=== PATIENT | male | born 1975 | race Caucasian/White ===

== ENCOUNTER 2017-08-08 10:17 | Inpatient (IN) | payer BC ==
[2017-08-08 11:18] LABS: #Eosinphils 0.2 thou/uL (0.0-0.7); #Monocytes 1.5 thou/uL (0.11-0.59); #Neutrophils 12.6 thou/uL (1.40-6.50); %Basophils 0.1 % (0.0-1.0); %Eosinophils 1.3 % (0.0-10.0); %Lymphocytes 6.6 % (21.0-51.0); %Monocytes 9.9 % (0.0-10.0); Hematocrit 35.5 % (42.0-52.0); Mean Platelet Volume 7.4 fL (7.4-10.4); Red Blood Cell (RBC) Count 3.76 mill/uL (4.70-6.10); White Blood Cell (WBC) Count 15.3 thou/uL (4.8-10.8)
[2017-08-08 11:33] LABS: Lactic Acid - Sepsis 1.1 mmol/L (0.5-2.2)
[2017-08-08 11:45] LABS: ALT (SGPT) 9 U/L (8-55); AST (SGOT) 9 U/L (5-34); Alkaline Phosphatase 112 U/L (40-150); Anion Gap 15 mmol/L (10-20); BUN (Urea Nitrogen) 50 mg/dL (8.9-20.6); Bilirubin, Total 0.4 mg/dL (0.2-1.2); CK (CPK) 24 U/L (30-200); Calc. Creatinine Clearance 0 mL/min (70-130); Carbon Dioxide 12 mmol/L (22-29); Chloride 112 mmol/L (98-107); Estimated GFR-MDRD 20; Globulin 3.2 g/dL (2.4-3.5); Lipase 33 U/L (8-78); Protein, Total 6.9 g/dL (6.0-8.3)
[2017-08-08 13:29] LABS: Magnesium 1.1 mg/dL (1.6-2.6); Phosphorus 5.2 mg/dL (2.3-4.7)
[2017-08-08 13:31] LABS: Bilirubin Negative (Negative); Blood, Urine Negative (Negative); Glucose, Urine (Dipstick) Negative (Negative); Ketone, Urine Negative (Negative); Nitrite Negative (Negative); Protein, Urine (Dipstick) 30 mg/dL (Neg-Trace); Urobilinogen 0.2 mg/dL (0.2-1.0)
[2017-08-08 13:33] LABS: Bacteria/HPF None Seen HPF (None Seen); Squamous Epithelial 0-3 HPF (0-3); WBC/HPF 0-3 HPF (0-3)
[2017-08-08 13:41] LABS: Hyaline Casts/LPF 0-3 HYALINE CAST LPF (0-3 Hyaline); RBC/HPF 0-3 HPF (0-3)
[2017-08-08] MEDS ORDERED: Ondansetron ODT 4 MG TAB SL PRN (14:50)
[2017-08-08] MEDS ORDERED: Sodium Chloride 0.9% 1,000 ML IV SCH (14:50)
[2017-08-08] MEDS ORDERED: Ondansetron HCl/PF 4 MG/2 ML Vial IVP PRN ×2 (14:50→17:54)
[2017-08-08] MEDS ORDERED: FLU VACC QS2017-18 36 mo. & older 0.5 ML SYRINGE IM ONE (15:30)
[2017-08-08] MEDS ORDERED: Magnesium 2 GM/NS 0.9% 100 ML 2 GM in Premix Bag 1 BAG IVPB SCH (17:15)
[2017-08-08] MEDS ORDERED: Ondansetron ODT 4 MG TAB PO PRN (17:54)
[2017-08-08] MEDS: Sodium Chloride 0.9% 1,000 ML IV SCH (18:06)
[2017-08-08] MEDS ORDERED: traMADol HCl 50 MG TAB PO PRN (20:33)
[2017-08-08] MEDS ORDERED: Loperamide HCl 2 MG CAP PO PRN (22:29)
--- NOTE | 2017-08-08 23:31 | HP ---
DATE OF ADMISSION: 08/08/2017 PRIMARY CARE PHYSICIAN: Zachery Garibay D.O. PRIMARY GLUER MACHINE OPERATOR: Eh Espinoza M.D. CHIEF COMPLAINT: Diarrhea. HISTORY OF PRESENT ILLNESS: The patient is a 41-year-old male with IgA nephropathy, status post nicole al transplant and chronic kidney disease stage 3, presented to the emergency room with above complai nts. Over the last one week, the patient has on and off diarrhea. He has more than 10 episodes on the da alfonso basis. The stool is watery with some formed contents. He also has generalized abdominal crampi ng and bloating. No nausea or vomiting reported. He denies any recent travel. No other family mem bers with similar illness. No fevers or chills reported. No jaundice. No recent changes in his me dications. He denies any lightheadedness, dizziness, however, feels generally weak. In the emergency room, his initial vital signs showed temperature 97.7, respirations 16, pulse of 93 , blood pressure of 101/60 with O2 saturation of 100% on room air. His workup was consistent with c reatinine of 3.41 with BUN 50. Please note that the patient recently had a gout flare and was start ed on indomethacin after Nephrology approval. PAST MEDICAL HISTORY: 1. IgA nephropathy, status post renal transplant. 2. Chronic kidney disease stage 3. 3. History of end-stage renal disease on hemodialysis in the past. 4. Hypertension. PAST SURGICAL HISTORY: 1. Renal transplant in 2003. 2. Right arm fistula. ALLERGIES: No known drug allergies. CURRENT MEDICATIONS: The patient is currently on captopril 50 mg t.i.d., diltiazem extended release 360 mg q.p.m., indomethacin 50 mg daily, tramadol as needed, prednisone 5 mg daily, tacrolimus 0.5 mg twice a day, mycophenolate 540 mg b.i.d. SOCIAL HISTORY: The patient currently lives at home. No current use of smoking, alcohol, or drug u se. FAMILY HISTORY: Negative for heart disease or renal failure. REVIEW OF SYSTEMS: The following complete review of systems was negative, unless otherwise mentione d in the HPI or below: Constitutional: Weight loss or gain, ability to conduct usual activities. Skin: Rash, itching. Eyes: Double vision, pain. ENT/Mouth: Nose bleeding, neck stiffness, pain, tenderness. Cardiovascular: Palpitations, dyspnea on exertion, orthopnea. Respiratory: Shortness of breath, wheezing, cough, hemoptysis, fever, or night sweats. Gastrointestinal: Poor appetite, abdominal pain, heartburn, nausea, vomiting, constipation, or diar ekaterina. Genitourinary: Urgency, frequency, dysuria, nocturia. Musculoskeletal: Pain, swelling. Neurologic/Psychiatric: Anxiety, depression. Allergy/Immunologic: Skin rash, bleeding tendency. PHYSICAL EXAMINATION: VITAL SIGNS: As discussed above. GENERAL: A 41-year-old male in no apparent distress. Feels generally weak. HEENT: Head, atraumatic, normocephalic. Sclerae are anicteric. Moist mucous membranes. No oral l esion. NECK: Supple, no JVD appreciated. No carotid bruit. LUNGS: Clear to auscultation bilaterally. HEART: S1, S2 present. Regular rate and rhythm. No rubs or gallops appreciated. ABDOMEN: Soft, mild generalized tenderness, without any rebound or guarding. EXTREMITIES: No edema or calf tenderness. Right forearm dialysis fistula noted. NEUROLOGIC: Grossly nonfocal, moves all 4 extremities. PSYCHIATRY: Alert, awake, oriented x3. SKIN: Warm and dry. LYMPH NODES: No palpable lymph nodes in the neck. PERIPHERAL VASCULAR: Radial pulses palpable bilaterally. MUSCULOSKELETAL: No joint swelling or tenderness. LABORATORY FINDINGS: 1. Creatinine 3.41 with BUN 50. 2. Magnesium 1.1. 3. CBC showed WBC 15.3 with hemoglobin 11.4. 4. CRP was 0.85. 5. Urinalysis was negative for wbc's or bacteria. Ketones were negative. 6. Stool workup was negative for Giardia or cryptosporidium. Stool lactoferrin was positive. Camp ylobacter and Shiga toxin was negative. C. diff was negative. 7. EKG by my review showed normal sinus rhythm without significant ST-T wave changes. IMPRESSION: 1. Acute kidney injury on chronic kidney disease stage 3, probably caused by hypovolemia/dehydratio n. 2. Hypomagnesemia. 3. Metabolic acidosis, probably secondary to renal failure. 4. Recent gout flare on indomethacin. This could be contributing to his renal failure. 5. Secondary hyperparathyroidism. 6. Elevated inflammatory markers. 7. Hyponatremia. 8. Leukocytosis, questionable systemic inflammatory response syndrome. 9. Anemia, probably secondary to renal disease. 10. History of IgA nephropathy. 11. Hypertension. 12. History of renal transplant in 2003, currently on immunosuppressant. PLAN: 1. The patient will be monitored on the medical floor. We will continue IV fluids at 120 mL per ho ur. We will replace magnesium. Resume other home medications. I discussed the case with Dr. Marie Espinoza. He recommended not to check any drug level at this time. Indomethacin will be discontin ued. Stool workup was essentially negative except for lactoferrin positive. We will consult Infect ious Disease due to history of immunosuppression. 2. Plan of care was discussed with the patient. He stated understanding. The patient will require at least 2-3 days for stabilization.
[2017-08-09] MEDS: Sodium Chloride 0.9% 1,000 ML IV SCH ×3 (00:32→17:05)
[2017-08-09 05:49] LABS: Anion Gap 11 mmol/L (10-20); BUN (Urea Nitrogen) 42 mg/dL (8.9-20.6); BUN/Creatinine Ratio 16.47; CK (CPK) 23 U/L (30-200); Calc. Creatinine Clearance 39 mL/min (70-130); Calcium 8.3 mg/dL (7.8-10.44); Carbon Dioxide 10 mmol/L (22-29); Chloride 121 mmol/L (98-107); Estimated GFR-MDRD 28; Magnesium 1.5 mg/dL (1.6-2.6); Phosphorus 4.9 mg/dL (2.3-4.7)
[2017-08-09] MEDS: Tacrolimus 0.5 MG CAP PO SCH ×2 (08:39→20:10)
[2017-08-09] MEDS: Mycophenolate ER 180 MG TAB PO SCH ×2 (08:42→20:10)
[2017-08-09] MEDS: predniSONE 5 MG TAB PO SCH (08:43)
[2017-08-09] MEDS ORDERED: Diphenoxylate HCl/Atropine Tablet PO PRN (12:18)
--- NOTE | 2017-08-09 15:53 | PDOC.PN ---
- Subjective Encounter Start Date: 08/09/17 Encounter Start Time: 15:40 Subjective: f/u for SULEMA likely due to volume depletion of diarrhea and iatrogenic -: factors. Creatinine improving with IVF's. Some decrease in frequency of -: stools. - Objective Resuscitation Status: Resuscitation Status FULL:Full Resuscitation MAR Reviewed: Yes Vital Signs & Weight: Vital Signs (12 hours) Temp Pulse Resp BP Pulse Ox 08/09/17 13:00 97.9 F 71 18 98 08/09/17 11:24 97.9 F 71 18 128/74 100 08/09/17 07:36 98.2 F 72 18 105/62 97 08/09/17 04:52 97.7 F 75 18 122/75 Weight Weight 157 lb 6.4 oz I&O: 08/08/17 08/09/17 08/10/17 06:59 06:59 06:59 Intake Total 645 360 Balance 645 360 Result Diagrams: 08/08/17 11:09 08/09/17 04:38 Additional Labs: Microbiology 08/08/17 15:01 Stool - Liquid Stool Lactoferrin - Final 08/08/17 15:01 Stool - Liquid Rapid Parasite Screen - Final 08/08/17 15:01 Stool - Liquid Campylobacter Antigen Assay - Final 08/08/17 15:01 Stool - Liquid Shiga Toxin Test - Final 08/08/17 15:01 Stool - Liquid C. difficile GDH Antigen & Toxins - Final 08/08/17 15:01 Stool - Liquid Stool Culture - Preliminary Laboratory Tests 08/08/17 08/08/17 08/09/17 11:09 11:09 04:38 Carbon Dioxide 12 L BUN 50 H Creatinine 3.41 H Phosphorus 5.2 H 4.9 H Magnesium 1.1 L 1.5 L Phys Exam - Physical Examination Constitutional: NAD HEENT: PERRLA, oral pharynx no lesions Neck: no JVD, supple Respiratory: no wheezing, clear to auscultation bilateral Cardiovascular: RRR Gastrointestinal: soft, non-tender, no distention, positive bowel sounds Musculoskeletal: no edema, pulses present Neurological: normal sensation, moves all 4 limbs Psychiatric: A&O x 3 Skin: normal turgor, cap refill <2 seconds Dx/Plan (1) SULEMA (acute kidney injury) Code(s): N17.9 - ACUTE KIDNEY FAILURE, UNSPECIFIED Status: Acute Comment: Improved with IVF's, continue IVF's and avoid nephrotoxic agents and contrast media, repeat BMP in am (2) CKD (chronic kidney disease) stage 3, GFR 30-59 ml/min Code(s): N18.3 - CHRONIC KIDNEY DISEASE, STAGE 3 (MODERATE) Status: Chronic (3) Metabolic acidosis Code(s): E87.2 - ACIDOSIS Status: Acute Comment: Secondary to #1, monitor response to volume replacement (4) Hyperphosphatemia Code(s): E83.39 - OTHER DISORDERS OF PHOSPHORUS METABOLISM Status: Acute Comment: Improved with IVF's (5) Renal transplant, status post Code(s): Z94.0 - KIDNEY TRANSPLANT STATUS Status: Chronic Comment: Continue immuosuppressive therapy (6) Gastroenteritis Code(s): K52.9 - NONINFECTIVE GASTROENTERITIS AND COLITIS, UNSPECIFIED Status : Acute Comment: ? infectious process, await final stool cx results, continue Lomotil, hold abx - Plan plan discussed w/ family, out of bed/ambulate, DVT proph w/SCDs Stable overall -: Continue IVF's -: Avoid nephrotoxic meds and contrast media -: Await final stool cx results -: AM lab: BMP, CBC * .
[2017-08-10] MEDS: Sodium Chloride 0.9% 1,000 ML IV SCH ×3 (01:30→20:58)
[2017-08-10 05:01] LABS: #Eosinphils 0.1 thou/uL (0.0-0.7); #Lymphocytes 0.8 thou/uL (1.20-3.40); #Monocytes 1.2 thou/uL (0.11-0.59); %Basophils 0.3 % (0.0-1.0); %Eosinophils 1.1 % (0.0-10.0); %Lymphocytes 7.7 % (21.0-51.0); %Monocytes 11.8 % (0.0-10.0); Hematocrit 28.6 % (42.0-52.0); Mean Platelet Volume 7.7 fL (7.4-10.4); Red Blood Cell (RBC) Count 3.03 mill/uL (4.70-6.10); White Blood Cell (WBC) Count 10.1 thou/uL (4.8-10.8)
[2017-08-10 05:14] LABS: Anion Gap 9 mmol/L (10-20); BUN (Urea Nitrogen) 27 mg/dL (8.9-20.6); BUN/Creatinine Ratio 13.17; Calc. Creatinine Clearance 48 mL/min (70-130); Calcium 8.2 mg/dL (7.8-10.44); Carbon Dioxide 11 mmol/L (22-29); Chloride 122 mmol/L (98-107); Estimated GFR-MDRD 36; Phosphorus 3.9 mg/dL (2.3-4.7)
[2017-08-10] MEDS: Tacrolimus 0.5 MG CAP PO SCH ×2 (07:54→20:50)
[2017-08-10] MEDS: predniSONE 5 MG TAB PO SCH (07:54)
[2017-08-10] MEDS: Mycophenolate ER 180 MG TAB PO SCH ×2 (07:54→20:50)
--- NOTE | 2017-08-10 08:39 | PDOC.PN ---
- Subjective Encounter Start Date: 08/10/17 Encounter Start Time: 08:25 Subjective: f/u for SULEMA and hypovolemia, dehydration and gastroenteritis. Stool studies -: all negative to date. Diarrhea persists despite overall feeling well. -: Appetite improved. - Objective Resuscitation Status: Resuscitation Status FULL:Full Resuscitation MAR Reviewed: Yes Vital Signs & Weight: Vital Signs (12 hours) Temp Pulse Resp BP Pulse Ox 08/10/17 04:00 98.0 F 76 18 126/70 97 08/10/17 03:35 99 08/09/17 23:50 98.0 F 86 16 127/71 99 Weight Weight 169 lb I&O: 08/09/17 08/10/17 08/11/17 06:59 06:59 06:59 Intake Total 645 2541 Balance 645 2541 Result Diagrams: 08/10/17 04:41 08/10/17 04:41 Additional Labs: Microbiology 08/08/17 15:01 Stool - Liquid Stool Lactoferrin - Final 08/08/17 15:01 Stool - Liquid Rapid Parasite Screen - Final 08/08/17 15:01 Stool - Liquid Campylobacter Antigen Assay - Final 08/08/17 15:01 Stool - Liquid Shiga Toxin Test - Final 08/08/17 15:01 Stool - Liquid C. difficile GDH Antigen & Toxins - Final 08/08/17 15:01 Stool - Liquid Stool Culture - Preliminary Laboratory Tests 08/08/17 08/08/17 08/09/17 11:09 11:09 04:38 Potassium 3.6 Carbon Dioxide 12 L 10 L BUN 50 H Creatinine 3.41 H 2.55 H Phosphorus 5.2 H 4.9 H Magnesium 1.1 L 1.5 L 08/10/17 04:41 Potassium Carbon Dioxide BUN Creatinine Phosphorus 3.9 Magnesium Phys Exam - Physical Examination Constitutional: NAD HEENT: PERRLA, oral pharynx no lesions Neck: no JVD, supple occasional exp wheeze Respiratory: clear to auscultation bilateral Cardiovascular: RRR Gastrointestinal: soft, non-tender, no distention, positive bowel sounds Musculoskeletal: no edema, pulses present Neurological: normal sensation, moves all 4 limbs Psychiatric: A&O x 3 Skin: normal turgor, cap refill <2 seconds Dx/Plan (1) SULEMA (acute kidney injury) Code(s): N17.9 - ACUTE KIDNEY FAILURE, UNSPECIFIED Status: Acute Comment: Improved with IVF's, continue IVF's and avoid nephrotoxic agents and contrast media, repeat BMP in am, decrease IVF's 75ml/h (2) CKD (chronic kidney disease) stage 3, GFR 30-59 ml/min Code(s): N18.3 - CHRONIC KIDNEY DISEASE, STAGE 3 (MODERATE) Status: Chronic (3) Metabolic acidosis Code(s): E87.2 - ACIDOSIS Status: Acute Comment: Secondary to #1, monitor response to volume replacement (4) Hyperphosphatemia Code(s): E83.39 - OTHER DISORDERS OF PHOSPHORUS METABOLISM Status: Acute Comment: Improved with IVF's (5) Renal transplant, status post Code(s): Z94.0 - KIDNEY TRANSPLANT STATUS Status: Chronic Comment: Continue immuosuppressive therapy (6) Gastroenteritis Code(s): K52.9 - NONINFECTIVE GASTROENTERITIS AND COLITIS, UNSPECIFIED Status : Acute Comment: ? infectious process, stool cx all negative, continue Lomotil , hold abx, trial Florastor 250mg daily, consult GI service for any recommendations - Plan out of bed/ambulate, DVT proph w/SCDs Stable overall -: Decrease IVF's 75ml/h -: Florastor 250mg daily -: Consult GI service -: AM lab: BMP * .
[2017-08-10] MEDS ORDERED: Potassium Chloride 20 MEQ TAB PO SCH ×2 (09:00)
[2017-08-10] MEDS: Saccharomyces boulardii 250 MG CAP PO SCH (10:11)
--- NOTE | 2017-08-10 15:38 | CON ---
DATE OF CONSULTATION: 08/10/2017 REFERRING PHYSICIAN: Dr. Juan David Hubbard REASON FOR CONSULTATION: Persistent diarrhea over the last 2 weeks. HISTORY OF PRESENT ILLNESS: Mr. Alejandro Chowdary is a very pleasant 41-year-old male with history of di arrhea that started 2 weeks ago. The stools are watery. He has been having about 10 stools per day every day. He also complained of abdominal cramping and loud gurgling bowel sounds. There is no h istory fever or chills. No history of rectal bleeding. No history of any recent antibiotic intake. No history of recent travel outside the country. Since admission, he has had stool studies done f or ova and parasites, cultures, C. difficile, all came back negative. The patient has been taking o matthew the counter Imodium and also recently Lomotil to try to slow down the diarrhea. The patient had a kidney transplant in 2003. He was on immunosuppressants. A few years ago, he had diarrhea lasti ng several weeks and went to see his transplant doctor in [place]. At that time his medicine was [facility] and since that time, he has had no diarrhea. He has been seen by over the last several y ears. The patient has no history of nausea or vomiting. There is no family history of IBD. He has no other relevant history. ALLERGIES: None. SOCIAL HISTORY: The patient does not smoke or drink alcohol. No history of drug abuse. MEDICAL ILLNESSES: 1. Hypertension. 2. Gout with recent flareup and was placed on Indocin recently by Dr. Espinoza. 3. Chronic kidney disease stage 3. SURGERIES: 1. Status post kidney transplant in 2003 in [place]. 2. Right arm AV fistula. FAMILY HISTORY: Grandmother of lung cancer and was a chronic smoker, grandfather of liver cirrhosis and also had throat cancer. MEDICATIONS: 1. Captopril 50 mg p.o. 3 times a day. 2. Tramadol as needed. 3. Indomethacin 50 mg p.o. for gout. 4. Tacrolimus 0.5 mg twice a day. 5. Prednisone 5 once a day. 6. Mycophenolate 500 mg p.o. twice a day. REVIEW OF SYSTEMS: A 10-point system reviewed. CONSTITUTIONAL: No history of fever. No night sweats. No weight loss. RESPIRATORY: No history of chronic cough, hemoptysis, dyspnea. CARDIOVASCULAR: No chest pain, no palpitation, no dyspnea, orthopnea or PND. GASTROINTESTINAL: Abdominal cramping, diarrhea. GENITOURINARY: Unremarkable. MUSCULOSKELETAL: Vague back pain, arthralgias, myalgia. [employer]OC[employer]ATE: No history of TIA, no syncope, no chronic headache, no seizure disorder. ENDOCRINE/HEMATOLOGICAL/PSYCHIATRIC: Not known. PHYSICAL EXAMINATION: GENERAL: The patient appears very comfortable. He is in no distress. He is awake, alert, and comm unicative. VITAL SIGNS: Stable. His pulse is 78, blood pressure 140/75. He is afebrile. HEENT: Conjunctivae clear. NECK: Supple. No adenitis or thyromegaly noted. CARDIOVASCULAR: First and second heart sounds normal. LUNGS: Clear to auscultation. ABDOMEN: Soft and nondistended. Abdomen appears mildly tender. There are no findings of acute abd omen. Overall exam is very benign. EXTREMITIES: No edema. LABORATORY: Shows WBC 10,100, hemoglobin 9.4, hematocrit 28.6, MCV 94.3, platelet count 250,000, po lymorphs 79, lymphocytes 7.7, monocytes 11. Serum chemistries show on admission, sodium 135, potass ium 4.2, chloride 112, bicarbonate 12, BUN was 50, has come back to 27, creatinine 3.41 coming down to 2.05. Electrolytes are normal except mild hypokalemia at 3.4, total protein 6.9, albumin 3.7, gl obulin 3.8, lipase 33, glucose 103. The stool studies for ova and parasites, culture, Campylobacter , C. diff are all negative. CLINICAL IMPRESSION: A 41-year-old with persistent diarrhea over the last 2 weeks. The s tools are watery. There is no hematochezia. No history of fever. All stool studies were negative. planned. RECOMMENDATIONS: 1. Symptomatic treatment. 2. Plan for colonoscopy tomorrow and I will make further recommendations.
[2017-08-10 16:22] VITALS: BMI 24.9
[2017-08-10] MEDS: Potassium Chloride 20 MEQ TAB PO SCH (16:30)
[2017-08-11 05:49] LABS: Anion Gap 10 mmol/L (10-20); BUN (Urea Nitrogen) 20 mg/dL (8.9-20.6); BUN/Creatinine Ratio 10.58; Calc. Creatinine Clearance 56 mL/min (70-130); Calcium 8.2 mg/dL (7.8-10.44); Carbon Dioxide 11 mmol/L (22-29); Chloride 120 mmol/L (98-107); Estimated GFR-MDRD 40
[2017-08-11] MEDS ORDERED: GoLYTELY 4,000 ml Bottle PO SCH (06:00)
--- NOTE | 2017-08-11 06:41 | EKG ---
Test Reason : Blood Pressure : / mmHG Vent. Rate : 091 BPM Atrial Rate : 091 BPM P-R Int : 138 ms QRS Dur : 092 ms QT Int : 358 ms P-R-T Axes : 064 008 030 degrees QTc Int : 440 ms Normal sinus rhythm Normal ECG Confirmed by KEELY FORRESTER, MUSTAPHA ([id number]), research editor JOHN ROBERTS ([id number]) on 08/11/2017 6:41:19 AM Referred By: Confirmed By:MUSTAPHA RIGGS MD
[2017-08-11] MEDS: Mycophenolate ER 180 MG TAB PO SCH ×2 (08:03→19:58)
[2017-08-11] MEDS: Saccharomyces boulardii 250 MG CAP PO SCH (08:03)
[2017-08-11] MEDS: predniSONE 5 MG TAB PO SCH (08:03)
[2017-08-11] MEDS: Potassium Chloride 20 MEQ TAB PO SCH ×2 (08:03→16:25)
[2017-08-11] MEDS: Tacrolimus 0.5 MG CAP PO SCH ×2 (08:03→19:58)
[2017-08-11] MEDS: Sodium Chloride 0.9% 1,000 ML IV SCH ×2 (10:37→16:29)
--- NOTE | 2017-08-11 11:32 | PDOC.PN ---
- Subjective Encounter Start Date: 08/11/17 Encounter Start Time: 10:10 Subjective: still has watery diarrhea, no blood in it -: is drinking golytely for colonoscopy -: no nausea - Objective Resuscitation Status: Resuscitation Status FULL:Full Resuscitation MAR Reviewed: Yes Vital Signs & Weight: Vital Signs (12 hours) Temp Pulse Resp BP Pulse Ox 08/11/17 08:04 97.7 F 71 20 133/78 98 08/11/17 07:23 98 F 79 16 08/11/17 05:35 79 16 126/71 98 Weight Admit Weight 169 lb Weight 167 lb 3 oz I&O: 08/10/17 08/11/17 08/12/17 06:59 06:59 06:59 Intake Total 2541 1600 Balance 2541 1600 Result Diagrams: 08/10/17 04:41 08/11/17 04:26 Phys Exam - Physical Examination HEENT: PERRLA, moist MMs Neck: no JVD, supple Respiratory: no wheezing, no rales Cardiovascular: RRR, no significant murmur Gastrointestinal: soft, no distention, positive bowel sounds RLQ has Tx kidney Musculoskeletal: no edema, pulses present Neurological: non-focal, moves all 4 limbs right UE fistula+ Psychiatric: A&O x 3 Dx/Plan (1) Gastroenteritis Code(s): K52.9 - NONINFECTIVE GASTROENTERITIS AND COLITIS, UNSPECIFIED Status : Acute (2) Metabolic acidosis Code(s): E87.2 - ACIDOSIS Status: Acute (3) SULEMA (acute kidney injury) Code(s): N17.9 - ACUTE KIDNEY FAILURE, UNSPECIFIED Status: Acute Comment: resolving (4) CKD (chronic kidney disease) stage 3, GFR 30-59 ml/min Code(s): N18.3 - CHRONIC KIDNEY DISEASE, STAGE 3 (MODERATE) Status: Chronic (5) H/O kidney transplant Status: Chronic Comment: from 13yrs - Plan for colonoscopy today -: is immunosuppressed, might require Bx to r/o atypical organisms -: gentle iv hydration -: renal function stablilizing -: is on mycophenolate and prograf * . Review of Systems - Medications/Allergies Allergies/Adverse Reactions: Allergies Allergy/AdvReac Type Severity Reaction Status Date / Time No Known Allergies Allergy Verified 07/22/13 09:48 Medications: Current Medications Diltiazem HCl (Cardizem Cd) 360 mg PO 1999 COUNT INCLUDES THE [facility] Last Admin: 08/10/17 20:49 Dose: 360 mg Diphenoxylate HCl/Atropine (Lomotil) 2 tab PO Q6H PRN PRN Reason: Diarrhea/Loose Stools Last Admin: 08/09/17 13:45 Dose: 2 tab Sodium Chloride (Normal Saline 0.9%) 1,000 mls @ 75 mls/hr IV .[id number] COUNT INCLUDES THE [facility] Last Admin: 08/11/17 10:37 Dose: Not Given Loperamide HCl (Imodium) 2 mg PO PRN PRN PRN Reason: Diarrhea/Loose Stools Metoprolol Succinate (Toprol Xl) 100 mg PO 08 COUNT INCLUDES THE [facility] Last Admin: 08/11/17 05:37 Dose: 100 mg Miscellaneous Medication (Pharmacy To Dose) 1 each PO PRN PRN PRN Reason: Pharmacy to dose Mycophenolate Sodium (Myfortic) 540 mg PO 799,1999 COUNT INCLUDES THE [facility] Last Admin: 08/11/17 08:03 Dose: 540 mg Ondansetron HCl (Zofran Odt) 4 mg PO Q6H PRN PRN Reason: Nausea/Vomiting Ondansetron HCl (Zofran) 4 mg IVP Q6H PRN PRN Reason: Nausea/Vomiting Polyethylene Glycol/Electrolytes (Golytely) 4,000 ml PO 0600 COUNT INCLUDES THE [facility] Stop: 08/11/17 19:00 Last Admin: 08/11/17 05:37 Dose: 4,000 ml Potassium Chloride (K-Dur) 20 meq PO BID-[facility] Last Admin: 08/11/17 08:03 Dose: Not Given Prednisone (Prednisone) 5 mg PO 0800 COUNT INCLUDES THE [facility] Last Admin: 08/11/17 08:03 Dose: Not Given Saccharomyces Boulardii (Florastor) 250 mg PO DAILY COUNT INCLUDES THE [facility] Last Admin: 08/11/17 08:03 Dose: Not Given Sodium Chloride (Flush - Normal Saline) 10 ml IVF PRN PRN PRN Reason: Saline Flush Tacrolimus (Prograf) 0.5 mg PO 799,1999 COUNT INCLUDES THE [facility] Last Admin: 08/11/17 08:03 Dose: 0.5 mg Tramadol HCl (Ultram) 50 mg PO Q8H PRN PRN Reason: Moderate Pain (4-6)
[2017-08-11] MEDS ORDERED: Promethazine HCl 25 MG/ML VIAL SLOW IVP PRN (11:49)
[2017-08-11] MEDS ORDERED: Ondansetron HCl/PF 4 MG/2 ML Vial IVP PRN (11:49)
[2017-08-11] MEDS ORDERED: Promethazine HCl 25 MG/ML VIAL IM PRN (11:49)
--- NOTE | 2017-08-11 13:08 | OP ---
DATE OF PROCEDURE: 08/11/2017 SURGEON: Liset Faria M.D. OPERATIVE PROCEDURE: Colonoscopy with biopsy. PREOPERATIVE DIAGNOSIS: A 41-year-old male with severe diarrhea over the last 2 weeks. T he patient had stool studies that came back negative. The patient is undergoing colonoscopy because of severe and persistent diarrhea over the last 2+ weeks. POSTOPERATIVE DIAGNOSES: 1. Normal colonoscopy. No colitis seen. 2. Hemorrhoids. 3. Mild inflammatory changes over the cecal area which was very nonspecific. PROCEDURE IN DETAIL: The patient was placed on his left lateral position and was given sedation by Anesthesia Department. A rectal exam was done before the scope was advanced into the rectum. No le sions were felt on rectal exam. A Pentax video colonoscope was introduced into the rectum and advan ana all the way to the cecum. The mucosa appeared normal throughout the colon with normal vascular pattern. No colitis seen. Over the cecal pole, there are mild inflammatory changes mucosal hyperem ia and friability. This was biopsied. Withdrawal of scope in the cecum, ascending colon, hepatic f lexure, transverse colon, splenic flexure, descending colon, and sigmoid colon, no lesions seen. Re troflexion of the scope in the rectum showed hemorrhoids. RECOMMENDATIONS: 1. Repeat stool studies. 2. May try Questran 1 scoop p.o. twice a day. 3. Consider CAT scan of abdomen.
[2017-08-11] MEDS: Cholestyramine/Aspartame 4 gm Packet PO SCH (22:12)
[2017-08-12] MEDS: Potassium Chloride 20 MEQ TAB PO SCH (08:39)
[2017-08-12] MEDS: Saccharomyces boulardii 250 MG CAP PO SCH (08:39)
[2017-08-12] MEDS: predniSONE 5 MG TAB PO SCH (08:40)
[2017-08-12] MEDS: Mycophenolate ER 180 MG TAB PO SCH (08:40)
[2017-08-12] MEDS: Tacrolimus 0.5 MG CAP PO SCH (08:41)
[2017-08-12 08:50] LABS: #Eosinphils 0.2 thou/uL (0.0-0.7); #Lymphocytes 0.8 thou/uL (1.20-3.40); #Monocytes 1.6 thou/uL (0.11-0.59); #Neutrophils 8.4 thou/uL (1.40-6.50); %Basophils 0.1 % (0.0-1.0); %Eosinophils 1.4 % (0.0-10.0); %Lymphocytes 7.5 % (21.0-51.0); %Monocytes 14.6 % (0.0-10.0); Hematocrit 28.1 % (42.0-52.0); Mean Platelet Volume 7.7 fL (7.4-10.4)
[2017-08-12] MEDS ORDERED: Potassium Chloride 20 MEQ TAB PO SCH (09:00)
[2017-08-12 09:11] LABS: Anion Gap 7 mmol/L (10-20); BUN (Urea Nitrogen) 19 mg/dL (8.9-20.6); Calc. Creatinine Clearance 44 mL/min (70-130); Calcium 8.4 mg/dL (7.8-10.44); Carbon Dioxide 16 mmol/L (22-29); Chloride 118 mmol/L (98-107); Estimated GFR-MDRD 33; Phosphorus 3.6 mg/dL (2.3-4.7)
--- NOTE | 2017-08-12 10:50 | CT ---
CT ABDOMEN NONCONTRAST CT PELVIS NONCONTRAST: Date: 08-12-17 History: 41-year-old male with diarrhea. Comparison: None. Technique: Oral contrast administered. No IV contrast administered. FINDINGS: The study is limited without IV contrast. Most of the oral contrast material is in the stomach, wher e it causes gastric distention. Smaller amounts are present in the jejunum, and a separate batch of oral contrast material is present in the right side of the abdomen in the ileum. There is no small b owel dilatation. No air fluid levels in the small intestine. There is fluid and gas (air fluid level s) throughout the ascending colon. There is gas but little fluid in the transverse colon. There is a large amount of fluid distending the lumen of the rectum, and to a lesser degree in the sigmoid col on. There is a very short segment of apparent luminal narrowing somewhere near the junction between the sigmoid colon and rectum. There is fluid proximal and distal to that. This apparent narrowing co uld either be due to peristalsis or an actual stricture, such as that due to colon cancer. No signs of acute colonic diverticulitis. No small bowel dilatation. Bilateral [place] kidneys are very small. There is a transplanted kidney at the right lower quadrant abdominal cavity at the pelvic inlet. No hydronephrosis involving the transplanted kidney. No perinephric fat stranding. Normal appendix. Wi thin limitations of noncontrast scan, no gross pathology is identified involving the pancreas, abdom inal aorta, adrenals, liver, and spleen. Lung bases are grossly clear. No ascites. Normal urinary bl adder. IMPRESSION: 1. Liquid stool throughout the colon consistent with history of diarrhea. 2. A focal short segment narrowing somewhere near the rectosigmoid junction. This could either repre sent a peristaltic momentary contraction or a constricting lesion such as a colon cancer. Recommend correlation with colonoscopy or sigmoidoscopy. 3. Bilaterally severely atrophic kidneys representing chronic renal failure. 4. Transplanted renal kidney at the right pelvic inlet. POS: [facility]
[2017-08-12] MEDS: Cholestyramine/Aspartame 4 gm Packet PO SCH (11:31)
--- NOTE | 2017-08-12 14:17 | PRG ---
DATE OF SERVICE: 08/12/2017 HISTORY OF PRESENT ILLNESS: This is a 41-year-old male with severe watery diarrhea over t he last 2+ weeks. The stool studies have been negative. He had a colonoscopy which was negative fo r pathology. The only area of mild fatty changes was over the right colon which was biopsied. The findings were very nonspecific and I do not feel that is the reason for the diarrhea. He is actuall y feeling better. He is tolerating diet. He has no abdominal cramping. He has had only 2 stools a nd the stools are watery. He is on Questran twice a day. PHYSICAL EXAMINATION: GENERAL: Appears comfortable. VITAL SIGNS: Stable. CARDIOVASCULAR: Within normal limits. ABDOMEN: Soft to palpate. No organomegaly. No tenderness. No masses. CLINICAL IMPRESSION: Acute diarrhea, etiology unclear. Negative for any infectious pathology. The patient is actually better after colonoscopy. The patient can be discharged home on Questran twice a day. The patient advised to come back to me if he has recurrence of diarrhea. I will try to contact him once the biopsies results are back.
--- NOTE | 2017-08-12 14:31 | PDOC.PN ---
- Subjective Encounter Start Date: 08/12/17 Encounter Start Time: 10:30 Subjective: only 2 stools from last night -: feels better, wants to go home - Objective Resuscitation Status: Resuscitation Status FULL:Full Resuscitation MAR Reviewed: Yes Vital Signs & Weight: Vital Signs (12 hours) Temp Pulse Resp BP Pulse Ox 08/12/17 10:44 97.6 F 65 16 118/76 97 08/12/17 08:00 97.8 F 71 16 08/12/17 07:06 97.8 F 71 16 127/70 98 08/12/17 04:39 98.2 F 76 18 118/70 97 Weight Admit Weight 169 lb Weight 154 lb 6 oz I&O: 08/11/17 08/12/17 08/13/17 06:59 06:59 06:59 Intake Total 1600 850 Balance 1600 850 Result Diagrams: 08/12/17 08:29 08/12/17 08:29 Phys Exam - Physical Examination HEENT: PERRLA, moist MMs Neck: no JVD, supple Respiratory: no wheezing, no rales Cardiovascular: RRR, no significant murmur Gastrointestinal: soft, non-tender, no distention, positive bowel sounds Musculoskeletal: no edema, pulses present Neurological: non-focal, moves all 4 limbs Psychiatric: A&O x 3 Dx/Plan (1) Gastroenteritis Code(s): K52.9 - NONINFECTIVE GASTROENTERITIS AND COLITIS, UNSPECIFIED Status : Acute (2) Metabolic acidosis Code(s): E87.2 - ACIDOSIS Status: Acute (3) SULEMA (acute kidney injury) Code(s): N17.9 - ACUTE KIDNEY FAILURE, UNSPECIFIED Status: Acute Comment: resolving (4) CKD (chronic kidney disease) stage 3, GFR 30-59 ml/min Code(s): N18.3 - CHRONIC KIDNEY DISEASE, STAGE 3 (MODERATE) Status: Chronic (5) H/O kidney transplant Status: Chronic Comment: from 13yrs - Plan diarrhea is resolving -: stool studies were -ve -: may dc home when he is ready -: solid diet today -: to f/u with in 2 weeks, has appt with Alexis pepe with labs. * . Review of Systems - Medications/Allergies Allergies/Adverse Reactions: Allergies Allergy/AdvReac Type Severity Reaction Status Date / Time No Known Allergies Allergy Verified 07/22/13 09:48 Medications: Current Medications Cholestyramine Resin (Questran Light) 4 gm PO 1000,2200 [facility] Last Admin: 08/12/17 11:31 Dose: 4 gm Diltiazem HCl (Cardizem Cd) 360 mg PO 1999 [facility] Last Admin: 08/11/17 19:58 Dose: 360 mg Diphenoxylate HCl/Atropine (Lomotil) 2 tab PO Q6H PRN PRN Reason: Diarrhea/Loose Stools Last Admin: 08/09/17 13:45 Dose: 2 tab Loperamide HCl (Imodium) 2 mg PO PRN PRN PRN Reason: Diarrhea/Loose Stools Metoprolol Succinate (Toprol Xl) 100 mg PO 08 [facility] Last Admin: 08/12/17 08:40 Dose: 100 mg Miscellaneous Medication (Pharmacy To Dose) 1 each PO PRN PRN PRN Reason: Pharmacy to dose Mycophenolate Sodium (Myfortic) 540 mg PO 799,1999 [facility] Last Admin: 08/12/17 08:40 Dose: 540 mg Ondansetron HCl (Zofran Odt) 4 mg PO Q6H PRN PRN Reason: Nausea/Vomiting Ondansetron HCl (Zofran) 4 mg IVP Q6H PRN PRN Reason: Nausea/Vomiting [facility] Last Admin: 08/12/17 08:39 Dose: 20 meq Potassium Chloride (K-Dur) 20 meq PO BID [facility] Stop: 08/16/17 21:01 Last Admin: 08/12/17 08:41 Dose: Not Given Prednisone (Prednisone) 5 mg PO 0800 [facility] Last Admin: 08/12/17 08:40 Dose: 5 mg Saccharomyces Boulardii (Florastor) 250 mg PO DAILY [facility] Last Admin: 08/12/17 08:39 Dose: 250 mg Sodium Chloride (Flush - Normal Saline) 10 ml IVF PRN PRN PRN Reason: Saline Flush Tacrolimus (Prograf) 0.5 mg PO 799,1999 [facility] Last Admin: 08/12/17 08:41 Dose: 0.5 mg Tramadol HCl (Ultram) 50 mg PO Q8H PRN PRN Reason: Moderate Pain (4-6)
[2017-08-12 16:02] VITALS: BP 105/63; TEMP 98.1
--- NOTE | 2017-08-13 00:28 | DIS ---
DATE OF ADMISSION: 08/08/2017 DATE OF DISCHARGE: 08/12/2017 DISCHARGE DISPOSITION: To home. PRIMARY DISCHARGE DIAGNOSES: Gastroenteritis, unclear etiology; metabolic acidosis; acute kidney in jury with history of chronic kidney disease stage 3; history of renal transplant from last 13 years or so. PROCEDURES DONE DURING HOSPITALIZATION: The patient has had colonoscopy done on 08/11/2017, which s hows essentially normal and no findings of colitis was seen. There were hemorrhoids and mild inflam matory changes over the cecal area, which was nonspecific. Cecal biopsy revealed findings of active colitis. There was no significant evidence of chronic colitis or granulomatous inflammation. No d ysplasia or malignancy was seen. The acute findings could be due to bowel preparation induced mucos al changes or drug-induced injury including NSAIDs. CMV and HSV immunostains will be performed at a n outside institution. CT of the abdomen and pelvis done showed no acute pathology. Stool for Clos tridium difficile, Campylobacter and Shiga toxin were all negative. Stool for parasite screen was n egative for Giardia and cryptosporidium. Initial white count of 15, discharge numbers of 11, H\T\H 9 and 28 on the day of discharge, BUN and creatinine on the day of discharge are 19 and 2.2. Initia l BUN and creatinine were 15 and 3.4 with serum bicarbonate of 12 on the day of admission. DISCHARGE MEDICATIONS: Questran 4 g p.o. twice daily, Cardizem-CD 360 mg p.o. daily, Lomotil p.r.n. , Toprol-XL 100 mg p.o. daily, mycophenolate 540 mg p.o. twice daily, Prograf 0.5 mg p.o. twice negra y, prednisone 5 mg p.o. daily, Ultram p.r.n. for pain. ALLERGIES: No known drug allergies. INPATIENT CONSULTS: Dr. Faria for Gastroenterology, Dr. Eh Espinoza for Nephrology. BRIEF COURSE DURING HOSPITALIZATION: The patient initially got admitted on 08/08/2017 with complain ts of severe diarrhea. The patient is immunocompromised with him being on mycophenolate and Prograf for his renal transplant done in 2003. He has had a history of IgA nephropathy with transplant don e for the same due to end-stage renal disease. The patient has had consultation with Dr. Eh du for acute kidney injury on top of his chronic kidney disease stage 3-4 with a transplant kidney , and Dr. Faria for Gastroenterology. The patient has had multiple stool studies done, which we re negative for any infectious etiology including parasites. He has had colonoscopy done, which has not revealed any findings of acute pathology. The patient needs to follow up with Dr. Faria in 2 weeks. His diarrhea has almost resolving with just 2 stools from last 16 hours or so. He is wan ting to go home. In view of this, he is being discharged home to follow up with primary care physic paolo in [address] Faria in 2 weeks. Patient has outpatient appointment for lab and followup appointment with Dr. Eh Espinoza. Please see a [id number] documentation on [facility] for the d ay of discharge.
== END 2017-08-12 16:40 | disposition home or self-care (01) | DRG 683 ==
LOC: ERS 10:17 → T4-B 14:25
PROVIDERS: ADMIT Internal Medicine; ATTEND Internal Medicine
PROC: 0DBH8ZX Excision of Cecum, Via Natural or Artificial Opening Endoscopic, Diagnostic (ICD-10-PCS; principal; 2017-08-11)
DX: N17.9 Acute kidney failure, unspecified (principal); E87.2 Acidosis; Z94.0 Kidney transplant status; E87.1 Hypo-osmolality and hyponatremia; K52.9 Noninfective gastroenteritis and colitis, unspecified; E86.0 Dehydration; I12.9 Hypertensive chronic kidney disease with stage 1 through stage 4 chronic kidney disease, or unspecified chronic kidney disease; N18.3 Chronic kidney disease, stage 3 (moderate); D63.1 Anemia in chronic kidney disease; M10.9 Gout, unspecified; E83.39 Other disorders of phosphorus metabolism; N25.81 Secondary hyperparathyroidism of renal origin; E87.6 Hypokalemia; E88.09 Other disorders of plasma-protein metabolism, not elsewhere classified; E83.51 Hypocalcemia; Z79.899 Other long term (current) drug therapy; K64.9 Unspecified hemorrhoids
CPT/HCPCS: 36415; 74176; 80053; 80069; 81003; 81015; 82010; 82550; 83605; 83630; 83690; 83735; 84100; 85025; 86140; 87015; 87045; 87046; 87324; 87328; 87329; 87449; 87899; 88305; 93005; 96360; 96361; J3475; J7507

== ENCOUNTER 2018-07-09 08:41 | Inpatient (IN) | payer BC, SELFPAY ==
[2018-07-09] MEDS ORDERED: Ondansetron HCl/PF 4 MG/2 ML Vial ONE (09:21)
[2018-07-09 09:35] LABS: Hemoglobin 11.3 g/dL (14.0-18.0); Mean Corpuscular HGB CONC 34.3 g/dL (32.0-36.0); Mean Corpuscular Hemoglobin 31.9 pg (27.0-31.0); Mean Corpuscular Volume 92.9 fL (78.0-98.0); Platelet Count 238 thou/uL (130-400); RBC Distribution Width 12.5 % (11.5-14.5); Red Blood Cell (RBC) Count 3.54 mill/uL (4.70-6.10); White Blood Cell (WBC) Count 20.7 thou/uL (4.8-10.8)
[2018-07-09 09:51] LABS: ALT (SGPT) 16 U/L (8-55); AST (SGOT) 8 U/L (5-34); Albumin 3.5 g/dL (3.5-5.0); Alkaline Phosphatase 94 U/L (40-150); Anion Gap 10 mmol/L (10-20); BUN (Urea Nitrogen) 46 mg/dL (8.9-20.6); Bilirubin, Total 0.9 mg/dL (0.2-1.2); Calc. Creatinine Clearance 0 mL/min (70-130); Calcium 8.2 mg/dL (7.8-10.44); Carbon Dioxide 13 mmol/L (22-29); Chloride 114 mmol/L (98-107); Estimated GFR-MDRD 23; Globulin 2.7 g/dL (2.4-3.5); Glucose 134 mg/dL (70-105); Potassium 3.3 mmol/L (3.5-5.1); Protein, Total 6.2 g/dL (6.0-8.3); Sodium 134 mmol/L (136-145)
[2018-07-09 09:56] LABS: Band 6 % (5-11); Lymphocytes 3 % (21-51); MDiff Complete? YES; Monocytes 9 % (0-10); Neutrophil 82 % (42-75); PLT Morphology Comment Appears Adequate
[2018-07-09] MEDS ORDERED: Fentanyl 100 MCG/2 ML VIAL ONE ×2 (09:57→11:41)
--- NOTE | 2018-07-09 10:29 | ULT ---
SOFT TISSUE ULTRASOUND: HISTORY: Groin abscess. COMPARISON: None. TECHNIQUE: Real-time, villela-scale, and color evaluation of the left groin was obtained. FINDINGS: In the right groin, there is a small, 3 x 1 x 2.1 cm collection of fluid with overlying skin thickeni ng. In the left groin, there is a more complex fluid collection, measuring 3.1 x 1.3 cm, with periph eral hypervascularity. Small reactive bilateral inguinal lymph nodes. IMPRESSION: Bilateral groin fluid collections, with increased hyperemia of the adjacent fat on the left, relative to the right. May be sequela of a developing abscess. A CT would be beneficial. POS: [facility]
[2018-07-09] MEDS ORDERED: Piperacillin/Tazobactam 4.5 GM VIAL ONE (10:31)
--- NOTE | 2018-07-09 11:54 | CT ---
NONCONTRAST CT PELVIS: Date: 07/09/18 HISTORY: Patient reports abscess in right groin for 5 days. Increased in size. Patient was administered antibi otic without improvement. Pain. COMPARISON: Limited sonographic evaluation of each groin, which was obtained on this date just prior to this exam . FINDINGS: There is inflammatory stranding seen adjacent to the left inguinal region within the subcutaneous sof t tissues with slight skin thickening. The inflammatory changes extend inferiorly and medially to the level of the scrotum with associated fluid and subcutaneous soft tissues. There is a low density str ucture seen in the left adnexal region, difficult to accurately measure on this examination due to th e adjacent fluid. However, there is suggestion of a bilobed appearing collection which measures at le ast 3.1 cm. This similar irregular fluid collection was seen in left groin on the ultrasound examinat ion. There is a small low density collection seen within the subcutaneous soft tissues anteriorly in the right inguinal region without significant inflammatory changes seen. This collection measures mary roximately 2.1 cm. This was present on ultrasound examination as well. There is an increased number of left inguinal lymph nodes with largest lymph node measuring approxima tely 1.3 cm, which is mildly enlarged. These lymph nodes are likely reactive in origin. There is ques tion of left-sided hydrocele, but this is difficult to evaluate without IV contrast. A right-sided pelvic kidney is noted, likely related to renal transplant. There is no hydronephrosis present. The urinary bladder has a normal nonenhanced CT appearance. Fluid is seen within the sigmoid and rectum. Vascular calcifications are present within the femoral arteries. IMPRESSION: 1. Inflammatory changes and fluid within the left inguinal region and extending inferiorly to the le nury of the left scrotum with an irregular slightly increased density fluid collection present, which is difficult to accurately measure on this exam due to the adjacent fluid and inflammatory stranding, but measures at least 3.1 cm. This could be related to small focal abscess collection with adjacent inflammatory changes within the subcutaneous soft tissues. 2. Small fluid collection right inguinal region, also seen on the ultrasound examination. However, t he extensive inflammatory changes on the left are not visualized adjacent to this small collection, b ut infectious process in the right inguinal region is also a possibility. 3. Left inguinal lymphadenopathy, probably reactive in origin. 4. Prominent atherosclerotic vascular calcifications. 5. Transplant kidney right pelvis. POS: [facility]
[2018-07-09] MEDS ORDERED: Senokot 8.6 MG TAB PO PRN (12:42)
[2018-07-09] MEDS ORDERED: traMADol HCl 50 MG TAB PO PRN (12:42)
[2018-07-09] MEDS ORDERED: Guaifenesin DM 100-10/5 ML UDCUP PO PRN (12:42)
[2018-07-09] MEDS ORDERED: Prevnar 13-Val Conj/PF 0.5 ML SYRINGE IM ONE (14:30)
[2018-07-09] MEDS: Sodium Chloride 0.9% 1,000 ML IV SCH (14:35)
[2018-07-09] MEDS: cefTRIAXone\\ROCEPHIN 1 GM in Sodium Chloride 0.9% 100 ML IVPB SCH (14:35)
[2018-07-09] MEDS ORDERED: VANCOMYCIN IVPB PRN (15:47)
--- NOTE | 2018-07-09 17:37 | HP ---
REASON FOR ADMISSION: Sepsis, left inguinal abscess, immunosuppressed state. HISTORY OF PRESENT ILLNESS: The patient gives history of having a boil in his left inguinal area. T his he noticed a week back and it has been progressively getting bigger and painful. Patient states he has had multiple such boils in the past and he has had incision and drainages done at the primary care physician's office. He blames it on his immunosuppressant medications. He is a renal transplan t patient on prednisone, Myfortic and tacrolimus. Currently, feels better after incision and drainag e with his pain, resolving. He does not recall if he has had MRSA infection in the past. PAST MEDICAL AND SURGICAL HISTORY: History of renal transplant done in 2003, prior to which was on d ialysis for 13 months for end-stage renal disease, history of IgM nephropathy, chronic kidney disease stage 3, hypertension, right upper extremity fistula and dialysis access procedures. CURRENT MEDICATIONS: Patient is on Myfortic 180 mg 3 tabs p.o. twice daily, prednisone 5 mg p.o. nahomy ly, captopril 50 mg p.o. twice daily, Cardizem 360 mg p.o. daily, tacrolimus 0.5 mg p.o. twice daily, metoprolol extended release 100 mg daily. ALLERGIES: No known drug allergies. PERSONAL HISTORY: Does not abuse alcohol or drugs. No history of smoking. FAMILY HISTORY: Mother is living and healthy. He does not know much about his father. REVIEW OF SYSTEMS: The following complete review of systems was negative, unless otherwise mentioned in the HPI or below: Constitutional: Weight loss or gain, ability to conduct usual activities. Sk in: Rash, itching. Eyes: Double vision, pain. ENT/Mouth: Nose bleeding, neck stiffness, pain, te nderness. Cardiovascular: Palpitations, dyspnea on exertion, orthopnea. Respiratory: Shortness of breath, wheezing, cough, hemoptysis, fever or night sweats. Gastrointestinal: Poor appetite, abdom inal pain, heartburn, nausea, vomiting, constipation, or diarrhea. Genitourinary: Urgency, frequenc y, dysuria, nocturia. Musculoskeletal: Pain, swelling. Neurologic/Psychiatric: Anxiety, depressio n. Allergy/Immunologic: Skin rash, bleeding tendency. PHYSICAL EXAMINATION: GENERAL: The patient is a 42-year-old male who is currently not in any acute distress. VITAL SIGNS: Blood pressure 94/56, pulse 82 per minute, respiratory rate 18 per minute, temperature 98.7 degrees Fahrenheit, saturating 98% on room air. NECK: Supple, no elevated JVD. HEENT: Extraocular muscles intact. Pupils reacting to light. Oral cavity mucous membranes are dry. No exudates or congestion. CARDIOVASCULAR: S1, S2 heard. Regular rhythm. RESPIRATORY: Air entry 1+ bilaterally. No rales or rhonchi. ABDOMEN: Soft, bowel sounds heard. No tenderness, rigidity or guarding. EXTREMITIES: The patient has a left inguinal area abscess which has been drained with incision and d rainage and there is a wick placed in the abscess site. He also has multiple old scars from prior ab scesses and a few of which are currently active, but has not ripened enough for drainage. VASCULAR: Peripheral pulses are 1+ bilateral, no ischemic ulcerations or gangrene. CENTRAL NERVOUS SYSTEM: No gross focal deficits noted. Patient is alert and oriented. PSYCHIATRIC: The patient is a bit anxious, otherwise no hallucinations or delusions. LABORATORY AND X-RAY FINDINGS: White count of 20, H and H 11 and 32, platelet count is 238 with 82% neutrophils, MCV is 92. BUN 46, creatinine 2.9, serum bicarbonate 13, potassium 3.3. Liver enzymes are within normal limits. Albumin is 3.5. Lactic acid was 0.8. He has had pelvic CAT scan done whi showed 3.1 cm fluid collection in the left inguinal area. The left inguinal adenopathy probably r eactive in origin transplanted kidney in the right pelvis. CLINICAL IMPRESSION AND PLAN: The patient will be admitted to telemetry for sepsis, left inguinal ab scess status post incision and drainage, immunosuppressed state, acute kidney injury on top of chroni c kidney disease stage 3 with history of renal transplant. The patient will be on vancomycin and cef triaxone. The abscess fluid has been sent for cultures along with blood cultures as well. He will b e on normal saline at 60 mL per hour. We will closely monitor him for possible volume overload. We will continue his mycophenolate, prednisone, and Prograf as before. I have discussed his findings wi th his Dr. Yash Edmonds was covering for Dr. Garibay, his primary care physician over the phone. The verna hayes is adamant about going home tomorrow as he is starting a new job on Thursday at 6:00 a.m. Kalli spear told him his cultures will not be ready by tomorrow and with his white count of 20, it may not be p ossible tomorrow to go home. Wound Care will also be consulted for help with teaching him and his wi fe for dressing changes in the morning.
[2018-07-09] MEDS ORDERED: Mycophenolate ER 180 MG TAB PO SCH (20:00)
[2018-07-09] MEDS ORDERED: Tacrolimus 1 MG CAP PO SCH (20:00)
[2018-07-09] MEDS: Mycophenolate DR 180 MG TAB PO SCH (20:25)
[2018-07-09] MEDS: Heparin 5,000 UNITS/ML VIAL SC SCH (20:26)
[2018-07-09] MEDS: Acetaminophen 325 MG TAB PO PRN (20:26)
[2018-07-09] MEDS: Tacrolimus 0.5 MG CAP PO SCH (20:26)
[2018-07-10 04:46] LABS: #Eosinphils 0.1 thou/uL (0.0-0.7); #Lymphocytes 0.7 thou/uL (1.20-3.40); #Monocytes 1.3 thou/uL (0.11-0.59); #Neutrophils 14.5 thou/uL (1.40-6.50); %Basophils 0.2 % (0.0-1.0); %Eosinophils 0.5 % (0.0-10.0); %Lymphocytes 4.1 % (21.0-51.0); %Neutrophils 87.2 % (42.0-75.0); Hemoglobin 10.9 g/dL (14.0-18.0); Mean Corpuscular HGB CONC 34.2 g/dL (32.0-36.0); Mean Corpuscular Volume 93.5 fL (78.0-98.0); Mean Platelet Volume 8.4 fL (7.4-10.4); Platelet Count 212 thou/uL (130-400); RBC Distribution Width 12.5 % (11.5-14.5); Red Blood Cell (RBC) Count 3.42 mill/uL (4.70-6.10); White Blood Cell (WBC) Count 16.7 thou/uL (4.8-10.8)
[2018-07-10 04:59] LABS: BUN (Urea Nitrogen) 46 mg/dL (8.9-20.6); Calc. Creatinine Clearance 34 mL/min (70-130); Chloride 119 mmol/L (98-107); Estimated GFR-MDRD 22; Glucose 95 mg/dL (70-105); Potassium 3.2 mmol/L (3.5-5.1); Sodium 136 mmol/L (136-145)
[2018-07-10 05:05] LABS: Carbon Dioxide Less than 8 mmol/L (22-29)
[2018-07-10] MEDS ORDERED: Sodium Bicarbonate Tab 325 MG TAB PO SCH (05:30)
[2018-07-10] MEDS: Sodium Chloride 0.9% 1,000 ML IV SCH (06:48)
[2018-07-10] MEDS: Heparin 5,000 UNITS/ML VIAL SC SCH ×2 (08:14→20:05)
[2018-07-10] MEDS: predniSONE 5 MG TAB PO SCH (08:14)
[2018-07-10] MEDS: Tacrolimus 0.5 MG CAP PO SCH ×2 (08:14→20:04)
[2018-07-10] MEDS: Mycophenolate DR 180 MG TAB PO SCH ×2 (08:15→20:04)
[2018-07-10] MEDS: Sodium Bicarbonate 50 MEQ in Dextrose 5 %-0.45 % NaCl 1,000 ML IV SCH ×2 (08:55→22:35)
[2018-07-10] MEDS: Vancomycin HCl 1 GM in Premix Bag 1 BAG IVPB SCH (10:36)
--- NOTE | 2018-07-10 11:50 | PDOC.PN ---
- Subjective Encounter Start Date: 07/10/18 Encounter Start Time: 09:15 Subjective: feels better, had dressing change done this am -: no sob - Objective Resuscitation Status: Resuscitation Status FULL:Full Resuscitation MAR Reviewed: Yes Vital Signs & Weight: Vital Signs (12 hours) Temp Pulse Resp BP BP Pulse Ox 07/10/18 07:15 99 F 96 16 115/62 99 07/10/18 04:26 99.7 F H 92 16 109/57 L 100 07/10/18 00:00 98.0 F 77 16 97/55 L 99 Weight Weight 170 lb 11.2 oz I&O: 07/09/18 07/10/18 07/11/18 06:59 06:59 06:59 Intake Total 3031 583 Output Total 975 Balance 3 583 Result Diagrams: 07/10/18 04:21 07/10/18 04:21 Phys Exam - Physical Examination HEENT: PERRLA, moist MMs Neck: no JVD, supple Respiratory: no wheezing, no rales, no rhonchi Cardiovascular: RRR, no significant murmur Gastrointestinal: soft, non-tender, positive bowel sounds Musculoskeletal: no edema, pulses present Neurological: non-focal, moves all 4 limbs Psychiatric: normal affect, A&O x 3 Dx/Plan (1) Sepsis Code(s): A41.9 - SEPSIS, UNSPECIFIED ORGANISM Status: Acute Qualifiers: Sepsis type: sepsis due to unspecified organism Qualified Code(s): A41.9 - Sepsis, unspecified organism (2) Abscess of left groin Code(s): L02.214 - CUTANEOUS ABSCESS OF GROIN Status: Acute Comment: s/p I& D done in ER (3) SULEMA (acute kidney injury) Code(s): N17.9 - ACUTE KIDNEY FAILURE, UNSPECIFIED Status: Acute (4) Metabolic acidosis Code(s): E87.2 - ACIDOSIS Status: Acute (5) CKD (chronic kidney disease) stage 3, GFR 30-59 ml/min Code(s): N18.3 - CHRONIC KIDNEY DISEASE, STAGE 3 (MODERATE) Status: Chronic (6) H/O kidney transplant Status: Chronic - Plan is on ceftriaxone and vanc renal dose -: severe acidosis, on bicarb drip, d/w Dr.Richard Espinoza -: wbc down to 16k from 20k, await cultures -: to ambulate in room as tolerated -: I have told patient if his labs are like today I wont be to dc him tomorrow * . Review of Systems - Medications/Allergies Allergies/Adverse Reactions: Allergies Allergy/AdvReac Type Severity Reaction Status Date / Time No Known Allergies Allergy Verified 07/22/13 09:48 Medications: Current Medications Acetaminophen (Tylenol) 650 mg PO Q4H PRN PRN Reason: Headache/Fever or Pain Last Admin: 07/09/18 20:26 Dose: 650 mg Guaifenesin/Dextromethorphan (Robitussin Dm) 15 ml PO Q4H PRN PRN Reason: Cough Heparin Sodium (Porcine) (Heparin) 5,000 units SC BID [facility] Last Admin: 07/10/18 08:14 Dose: 5,000 units Ceftriaxone Sodium 1 gm/ (Sodium Chloride) 100 mls @ 200 mls/hr IVPB 1400 [facility] Last Admin: 07/09/18 14:35 Dose: 100 mls Vancomycin HCl 1 gm/ Device 200 mls @ 200 mls/hr IVPB 1100 [facility] Last Admin: 07/10/18 10:36 Dose: 200 mls Sodium Bicarbonate 50 meq/ (Dextrose/Sodium Chloride) 1,050 mls @ 100 mls/hr IV .[id number] [facility] Last Admin: 07/10/18 08:55 Dose: 1,050 mls Miscellaneous Medication (Pharmacy To Dose) 1 each IVPB PRN PRN PRN Reason: Pharmacy to dose Mycophenolate Dr 180 (Mg Tab) 0 each PO 799,1999 [facility] Last Admin: 07/10/18 08:15 Dose: 1 each Prednisone (Prednisone) 5 mg PO 0800 [facility] Last Admin: 07/10/18 08:14 Dose: 5 mg Senna (Senokot) 2 tab PO HSPRN PRN PRN Reason: Constipation Sodium Bicarbonate (Bicarbonate, Sodium) 325 mg PO BID [facility] Tacrolimus (Prograf) 0.5 mg PO 799,1999 [facility] Last Admin: 07/10/18 08:14 Dose: 0.5 mg Tramadol HCl (Ultram) 50 mg PO TID PRN PRN Reason: Pain
[2018-07-10] MEDS: cefTRIAXone\\ROCEPHIN 1 GM in Sodium Chloride 0.9% 100 ML IVPB SCH (13:55)
[2018-07-10 15:50] VITALS: BMI 25.2
[2018-07-10] MEDS ORDERED: Sodium Chloride 0.9% 10 ML ONE (19:47)
[2018-07-10] MEDS: Sodium Bicarbonate Tab 325 MG TAB PO SCH (20:05)
[2018-07-10] MEDS ORDERED: Potassium Chloride 20 MEQ TAB PO SCH (20:15)
[2018-07-11 05:08] LABS: #Eosinphils 0.1 thou/uL (0.0-0.7); #Lymphocytes 0.6 thou/uL (1.20-3.40); #Monocytes 1.2 thou/uL (0.11-0.59); #Neutrophils 12.3 thou/uL (1.40-6.50); %Basophils 0.1 % (0.0-1.0); %Eosinophils 0.5 % (0.0-10.0); %Monocytes 8.8 % (0.0-10.0); %Neutrophils 86.6 % (42.0-75.0); Hemoglobin 9.7 g/dL (14.0-18.0); Mean Corpuscular HGB CONC 34.4 g/dL (32.0-36.0); Mean Corpuscular Hemoglobin 31.8 pg (27.0-31.0); Mean Corpuscular Volume 92.3 fL (78.0-98.0); Platelet Count 197 thou/uL (130-400); RBC Distribution Width 12.4 % (11.5-14.5); Red Blood Cell (RBC) Count 3.04 mill/uL (4.70-6.10); White Blood Cell (WBC) Count 14.2 thou/uL (4.8-10.8)
[2018-07-11 05:15] LABS: Anion Gap 12 mmol/L (10-20); BUN (Urea Nitrogen) 39 mg/dL (8.9-20.6); Calc. Creatinine Clearance 37 mL/min (70-130); Calcium 7.8 mg/dL (7.8-10.44); Chloride 120 mmol/L (98-107); Estimated GFR-MDRD 24; Glucose 117 mg/dL (70-105); Sodium 138 mmol/L (136-145)
[2018-07-11 05:19] LABS: Carbon Dioxide 9 mmol/L (22-29); Potassium 2.9 mmol/L (3.5-5.1)
[2018-07-11] MEDS: Sodium Bicarbonate 50 MEQ in Dextrose 5 %-0.45 % NaCl 1,000 ML IV SCH ×3 (06:18→23:45)
[2018-07-11] MEDS ORDERED: Potassium Chloride 20 MEQ TAB PO SCH (06:30)
[2018-07-11] MEDS: Mycophenolate DR 180 MG TAB PO SCH ×2 (09:18→20:50)
[2018-07-11] MEDS: Tacrolimus 0.5 MG CAP PO SCH ×2 (09:19→20:49)
[2018-07-11] MEDS: predniSONE 5 MG TAB PO SCH (09:19)
[2018-07-11] MEDS: Sodium Bicarbonate Tab 325 MG TAB PO SCH ×2 (09:20→20:50)
[2018-07-11] MEDS: Heparin 5,000 UNITS/ML VIAL SC SCH ×2 (09:53→20:50)
--- NOTE | 2018-07-11 10:19 | PDOC.PN ---
- Subjective Encounter Start Date: 07/11/18 Encounter Start Time: 09:15 Subjective: no sob, mild joint pain in left foot thinks it could be gout - Objective Resuscitation Status: Resuscitation Status FULL:Full Resuscitation MAR Reviewed: Yes Vital Signs & Weight: Vital Signs (12 hours) Temp Pulse Resp BP Pulse Ox 07/11/18 08:00 98.7 F 86 15 125/74 99 07/11/18 03:52 99.3 F 97 23 H 123/67 100 Weight Admit Weight 169 lb 3.2 oz Weight 173 lb 11.2 oz I&O: 07/10/18 07/11/18 07/12/18 06:59 06:59 06:59 Intake Total 3031 4193 Output Total 975 1999 Balance 2055 2192 Result Diagrams: 07/11/18 04:43 07/11/18 04:43 Phys Exam - Physical Examination HEENT: PERRLA, sclera anicteric Neck: no JVD, supple Respiratory: no wheezing, no rales Cardiovascular: RRR, no significant murmur Gastrointestinal: soft, non-tender, positive bowel sounds Musculoskeletal: no edema, pulses present Neurological: non-focal, moves all 4 limbs Psychiatric: normal affect, A&O x 3 Dx/Plan (1) Sepsis Code(s): A41.9 - SEPSIS, UNSPECIFIED ORGANISM Status: Acute Qualifiers: Sepsis type: sepsis due to unspecified organism Qualified Code(s): A41.9 - Sepsis, unspecified organism (2) Abscess of left groin Code(s): L02.214 - CUTANEOUS ABSCESS OF GROIN Status: Acute Comment: s/p I& D done in ER (3) SULEMA (acute kidney injury) Code(s): N17.9 - ACUTE KIDNEY FAILURE, UNSPECIFIED Status: Acute (4) Metabolic acidosis Code(s): E87.2 - ACIDOSIS Status: Acute (5) CKD (chronic kidney disease) stage 3, GFR 30-59 ml/min Code(s): N18.3 - CHRONIC KIDNEY DISEASE, STAGE 3 (MODERATE) Status: Chronic (6) H/O kidney transplant Status: Chronic - Plan although his groin abscess was grosly purulent, there is no growth at 24hrs -: is on ceft and vanc -: D51/2NS with bicarb per 's advice for severe met acidosis -: wbc down to 14k from 20, hco3 still around 9 -: await opinion for out pt antibiotic choice (immunosuppressed+?mrsa * . Pt agrees to stay in hospital now, he will talk to his employer about his hospitalization need. Continue prograf and mycophenolate with prednisone for renal Tx. Review of Systems - Medications/Allergies Allergies/Adverse Reactions: Allergies Allergy/AdvReac Type Severity Reaction Status Date / Time No Known Allergies Allergy Verified 07/22/13 09:48 Medications: Current Medications Acetaminophen (Tylenol) 650 mg PO Q4H PRN PRN Reason: Headache/Fever or Pain Last Admin: 07/09/18 20:26 Dose: 650 mg Guaifenesin/Dextromethorphan (Robitussin Dm) 15 ml PO Q4H PRN PRN Reason: Cough Heparin Sodium (Porcine) (Heparin) 5,000 units SC BID [facility] Last Admin: 07/11/18 09:53 Dose: 5,000 units Ceftriaxone Sodium 1 gm/ (Sodium Chloride) 100 mls @ 200 mls/hr IVPB 1400 [facility] Last Admin: 07/10/18 13:55 Dose: 100 mls Vancomycin HCl 1 gm/ Device 200 mls @ 200 mls/hr IVPB 1100 [facility] Last Admin: 07/10/18 10:36 Dose: 200 mls Sodium Bicarbonate 50 meq/ (Dextrose/Sodium Chloride) 1,050 mls @ 100 mls/hr IV .[id number] [facility] Last Admin: 07/11/18 06:18 Dose: Not Given Miscellaneous Medication (Pharmacy To Dose) 1 each IVPB PRN PRN PRN Reason: Pharmacy to dose Mycophenolate Dr 180 (Mg Tab) 0 each PO 799,1999 [facility] Last Admin: 07/11/18 09:18 Dose: 1 each Potassium Chloride (K-Dur) 40 meq PO Q6H [facility] Stop: 07/11/18 22:31 Prednisone (Prednisone) 5 mg PO 0800 [facility] Last Admin: 07/11/18 09:19 Dose: 5 mg Senna (Senokot) 2 tab PO HSPRN PRN PRN Reason: Constipation Sodium Bicarbonate (Bicarbonate, Sodium) 325 mg PO BID [facility] Last Admin: 07/11/18 09:20 Dose: 325 mg Tacrolimus (Prograf) 0.5 mg PO 799,1999 [facility] Last Admin: 07/11/18 09:19 Dose: 0.5 mg Tramadol HCl (Ultram) 50 mg PO TID PRN PRN Reason: Pain
[2018-07-11 10:45] LABS: Vancomycin, Trough 17.2 ug/mL
[2018-07-11] MEDS: Potassium Chloride 20 MEQ TAB PO SCH ×3 (11:14→16:45)
[2018-07-11] MEDS: Vancomycin HCl 1 GM in Premix Bag 1 BAG IVPB SCH (11:15)
[2018-07-11] MEDS: cefTRIAXone\\ROCEPHIN 1 GM in Sodium Chloride 0.9% 100 ML IVPB SCH (13:43)
[2018-07-11] MEDS: Acetaminophen 325 MG TAB PO PRN (15:51)
--- NOTE | 2018-07-11 17:40 | CON ---
DATE OF CONSULTATION: 07/11/2018 REASON FOR CONSULTATION: Abscesses in the groin area. HISTORY OF PRESENT ILLNESS: A 42-year-old with history of IgA nephropathy, previously on hemodialysi s for end-stage renal disease with renal transplant in 2003 and on immunosuppressive medication since . I had seen patient many years ago for recurrent skin abscesses and I think I vancomycin given supp ressive or antimicrobial therapy to eliminate colonization. Had been in remission, but now has had r ecurrence of those skin abscesses and presents with groin abscess and particularly on the left side, but also on the right side and a few other abscesses in the medial aspect of the right and left thigh s. He had limited surgical drainage or debridement at the emergency room. Otherwise, denies any hea daches, visual symptoms, sore throat, odynophagia, dysphasia. No back pain, no dyspnea or cough or c hest pain, no abdominal pain, no diarrhea. Voiding without difficulty. 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 ALLERGIES: None. SOCIAL HISTORY: Never smoker. FAMILY HISTORY: Noncontributory. CURRENT MEDICATIONS: Tylenol, ceftriaxone, guaifenesin, heparin, mycophenolate, potassium, prednison e 5 mg daily, tacrolimus, tramadol, vancomycin. PHYSICAL EXAMINATION: VITAL SIGNS: T-max 100.8, currently afebrile. BP 130/75, pulse 98. SKIN: Shows the skin abscesses in the groin area and the inner thigh and right foot medial aspect. No lymphadenopathy. Maybe has one lymph node in the right groin. HEENT: Ocular movements are conjugate. Oral cavity normal. NECK: Supple. LUNGS: Symmetrically breath sounds. HEART: S1, S2, regular rate without murmurs. ABDOMEN: Soft, not distended or tender. EXTREMITIES: No joint inflammatory activity. Moves extremities equally. NEUROLOGIC: Cognitive function appears to be intact. LABORATORY DATA: White cell count 20,000 down to 14,000, hemoglobin 9.7, platelets 197. Creatinine is at 2.89. Baseline creatinine was jillian of 1.58, April this year. Vancomycin trough 17.2. Microbi ology with negative blood cultures thus far, pending groin culture, Gram stain from the groin with a few gram positive cocci in clusters. IMAGING STUDIES: There is a pelvis CT with inflammatory changes and fluid within the left inguinal r egion extending inferiorly to the level of the left scrotum and irregular, slightly increased density fluid collection present and a small fluid collection right inguinal region, also left inguinal lymp hadenopathy. ASSESSMENT: Renal transplant on immunosuppressive therapy and now with recurrence of the previously noted skin abscesses, at this time with left groin area of lymphadenitis and extensive involvement. Waiting on cultures. Continue current antimicrobials and then hopefully transition to oral antimicro bial therapy for discharge planning. Continue for 2-3 weeks after that then we will start him decolo nization regimen probably with doxycycline and rifampin for 1 week out of the month for 3 consecutive months.
[2018-07-11 22:59] LABS: Creatinine, Urine 90.49 mg/dL (63-166)
[2018-07-12] MEDS: Acetaminophen 325 MG TAB PO PRN ×3 (04:43→23:10)
[2018-07-12 05:16] LABS: #Eosinphils 0.1 thou/uL (0.0-0.7); #Lymphocytes 0.7 thou/uL (1.20-3.40); #Monocytes 1.3 thou/uL (0.11-0.59); #Neutrophils 11.3 thou/uL (1.40-6.50); %Basophils 0.1 % (0.0-1.0); %Eosinophils 0.6 % (0.0-10.0); %Lymphocytes 5.4 % (21.0-51.0); %Monocytes 9.9 % (0.0-10.0); %Neutrophils 84.1 % (42.0-75.0); Mean Corpuscular Hemoglobin 31.8 pg (27.0-31.0); Mean Corpuscular Volume 96.2 fL (78.0-98.0); Platelet Count 220 thou/uL (130-400); RBC Distribution Width 12.7 % (11.5-14.5); Red Blood Cell (RBC) Count 3.15 mill/uL (4.70-6.10); White Blood Cell (WBC) Count 13.4 thou/uL (4.8-10.8)
[2018-07-12 05:24] LABS: Albumin 2.8 g/dL (3.5-5.0); Anion Gap 12 mmol/L (10-20); BUN (Urea Nitrogen) 29 mg/dL (8.9-20.6); BUN/Creatinine Ratio 11.51; Calc. Creatinine Clearance 43 mL/min (70-130); Calcium 8.2 mg/dL (7.8-10.44); Carbon Dioxide 10 mmol/L (22-29); Chloride 122 mmol/L (98-107); Estimated GFR-MDRD 28; Glucose 110 mg/dL (70-105); Phosphorus 2.4 mg/dL (2.3-4.7); Potassium 3.6 mmol/L (3.5-5.1); Sodium 140 mmol/L (136-145)
[2018-07-12] MEDS: Mycophenolate DR 180 MG TAB PO SCH ×2 (08:56→20:34)
[2018-07-12] MEDS: Potassium Chloride 20 MEQ TAB PO SCH ×2 (08:57→16:36)
[2018-07-12] MEDS: Sodium Bicarbonate Tab 325 MG TAB PO SCH ×2 (08:57→20:34)
[2018-07-12] MEDS: predniSONE 5 MG TAB PO SCH (08:57)
[2018-07-12] MEDS: Heparin 5,000 UNITS/ML VIAL SC SCH ×2 (08:57→20:34)
[2018-07-12] MEDS: Tacrolimus 0.5 MG CAP PO SCH ×2 (08:57→20:34)
[2018-07-12] MEDS: Sodium Bicarbonate 50 MEQ in Dextrose 5 %-0.45 % NaCl 1,000 ML IV SCH ×2 (09:40→21:55)
[2018-07-12] MEDS: Vancomycin HCl 1 GM in Premix Bag 1 BAG IVPB SCH (11:11)
--- NOTE | 2018-07-12 13:10 | PDOC.PN ---
- Subjective Encounter Start Date: 07/12/18 Encounter Start Time: 09:55 Subjective: no sob, feels better -: he d/w his new employer about him needing to stay in hospital - Objective Resuscitation Status: Resuscitation Status FULL:Full Resuscitation MAR Reviewed: Yes Vital Signs & Weight: Vital Signs (12 hours) Temp Pulse Resp BP Pulse Ox 07/12/18 11:25 98.8 F 76 15 139/79 100 07/12/18 08:00 98.5 F 74 17 100 07/12/18 07:50 98.5 F 74 17 137/79 100 07/12/18 04:00 99.5 F 91 17 128/75 97 Weight Admit Weight 169 lb 3.2 oz Weight 174 lb 1.6 oz I&O: 07/11/18 07/12/18 07/13/18 06:59 06:59 06:59 Intake Total 4193 4940 Output Total 1999 2149 Balance 2193 2790 Result Diagrams: 07/12/18 04:35 07/12/18 04:35 Phys Exam - Physical Examination HEENT: PERRLA, moist MMs Neck: no JVD, supple Respiratory: no wheezing, no rales Cardiovascular: RRR, no significant murmur Gastrointestinal: soft, non-tender, positive bowel sounds Musculoskeletal: no edema, pulses present Neurological: non-focal, moves all 4 limbs Psychiatric: normal affect, A&O x 3 Dx/Plan (1) Sepsis Code(s): A41.9 - SEPSIS, UNSPECIFIED ORGANISM Status: Acute Qualifiers: Sepsis type: sepsis due to unspecified organism Qualified Code(s): A41.9 - Sepsis, unspecified organism (2) Abscess of left groin Code(s): L02.214 - CUTANEOUS ABSCESS OF GROIN Status: Acute Comment: s/p I& D done in ER (3) SULEMA (acute kidney injury) Code(s): N17.9 - ACUTE KIDNEY FAILURE, UNSPECIFIED Status: Acute Comment: resolving (4) Metabolic acidosis Code(s): E87.2 - ACIDOSIS Status: Acute (5) CKD (chronic kidney disease) stage 3, GFR 30-59 ml/min Code(s): N18.3 - CHRONIC KIDNEY DISEASE, STAGE 3 (MODERATE) Status: Chronic (6) H/O kidney transplant Status: Chronic - Plan is on vanc and ceftriaxone -: wbc down to 13k now from 20k -: replace potassium, still hco3 is around 10, creatinine is better -: on 1/2 NS with bicarb plus oral bicarb -: cultures are growing multiple agents, antibiotics per advice * . On mycophenolate, prograf and prednisone for transplant. To ambulate as tolerated in hallway, march tx to medical floor. Review of Systems - Medications/Allergies Allergies/Adverse Reactions: Allergies Allergy/AdvReac Type Severity Reaction Status Date / Time No Known Allergies Allergy Verified 07/22/13 09:48 Medications: Current Medications Acetaminophen (Tylenol) 650 mg PO Q4H PRN PRN Reason: Headache/Fever or Pain Last Admin: 07/12/18 04:43 Dose: 650 mg Guaifenesin/Dextromethorphan (Robitussin Dm) 15 ml PO Q4H PRN PRN Reason: Cough Heparin Sodium (Porcine) (Heparin) 5,000 units SC BID [facility] Last Admin: 07/12/18 08:57 Dose: 5,000 units Ceftriaxone Sodium 1 gm/ (Sodium Chloride) 100 mls @ 200 mls/hr IVPB 1400 [facility] Last Admin: 07/11/18 13:43 Dose: 100 mls Vancomycin HCl 1 gm/ Device 200 mls @ 200 mls/hr IVPB 1100 [facility] Last Admin: 07/12/18 11:11 Dose: 200 mls Sodium Bicarbonate 50 meq/ (Dextrose/Sodium Chloride) 1,050 mls @ 100 mls/hr IV .[id number] [facility] Last Admin: 07/12/18 09:40 Dose: 1,050 mls Miscellaneous Medication (Pharmacy To Dose) 1 each IVPB PRN PRN PRN Reason: Pharmacy to dose Mycophenolate Dr 180 (Mg Tab) 0 each PO 0800,1999 [facility] Last Admin: 07/12/18 08:56 Dose: 1 each Potassium Chloride (K-Dur) 20 meq PO BID-WM [facility] Stop: 07/18/18 17:01 Last Admin: 07/12/18 08:57 Dose: 20 meq Prednisone (Prednisone) 5 mg PO 0800 [facility] Last Admin: 07/12/18 08:57 Dose: 5 mg Senna (Senokot) 2 tab PO HSPRN PRN PRN Reason: Constipation Sodium Bicarbonate (Bicarbonate, Sodium) 325 mg PO BID [facility] Last Admin: 07/12/18 08:57 Dose: 325 mg Tacrolimus (Prograf) 0.5 mg PO 0800,1999 [facility] Last Admin: 07/12/18 08:57 Dose: 0.5 mg Tramadol HCl (Ultram) 50 mg PO TID PRN PRN Reason: Pain Last Admin: 07/11/18 10:28 Dose: 50 mg
[2018-07-12] MEDS: cefTRIAXone\\ROCEPHIN 1 GM in Sodium Chloride 0.9% 100 ML IVPB SCH (13:38)
[2018-07-13] MEDS ORDERED: Fioricet 325/50/40 mg Tablet PO SCH (01:00)
--- NOTE | 2018-07-13 14:51 | PDOC.PN ---
- Subjective Encounter Start Date: 07/13/18 Encounter Start Time: 09:40 Subjective: wants to go home, no sob or pain - Objective Resuscitation Status: Resuscitation Status FULL:Full Resuscitation MAR Reviewed: Yes Vital Signs & Weight: Vital Signs (12 hours) Temp Pulse Resp BP BP 07/13/18 12:44 98.2 F 73 20 119/69 07/13/18 05:20 98.9 F 68 16 121/75 Weight Admit Weight 169 lb 3.2 oz Weight 174 lb 1.6 oz I&O: 07/12/18 07/13/18 07/14/18 06:59 06:59 06:59 Intake Total 4940 2610 Output Total 2150 976 Balance 2790 1634 Result Diagrams: 07/12/18 04:35 07/12/18 04:35 Phys Exam - Physical Examination HEENT: PERRLA, moist MMs Neck: no JVD, supple Respiratory: no wheezing, no rales Cardiovascular: RRR, no significant murmur Gastrointestinal: soft, non-tender, positive bowel sounds Musculoskeletal: no edema, pulses present Neurological: non-focal, moves all 4 limbs Psychiatric: normal affect, A&O x 3 Dx/Plan (1) Sepsis Code(s): A41.9 - SEPSIS, UNSPECIFIED ORGANISM Status: Acute Qualifiers: Sepsis type: sepsis due to unspecified organism Qualified Code(s): A41.9 - Sepsis, unspecified organism (2) Abscess of left groin Code(s): L02.214 - CUTANEOUS ABSCESS OF GROIN Status: Acute Comment: s/p I& D done in ER (3) SULEMA (acute kidney injury) Code(s): N17.9 - ACUTE KIDNEY FAILURE, UNSPECIFIED Status: Acute Comment: resolving (4) Metabolic acidosis Code(s): E87.2 - ACIDOSIS Status: Acute (5) CKD (chronic kidney disease) stage 3, GFR 30-59 ml/min Code(s): N18.3 - CHRONIC KIDNEY DISEASE, STAGE 3 (MODERATE) Status: Chronic (6) H/O kidney transplant Status: Chronic - Plan hemostable -: cultures are contaminated taken in ER after I&D -: d/w , rifampin and minocycline x 7 days x 4 months -: dc home -: to have labwork for renal function in 1 week in PCP office * . Review of Systems - Medications/Allergies Allergies/Adverse Reactions: Allergies Allergy/AdvReac Type Severity Reaction Status Date / Time No Known Allergies Allergy Verified 07/22/13 09:48 Medications: Current Medications Acetaminophen (Tylenol) 650 mg PO Q4H PRN PRN Reason: Headache/Fever or Pain Last Admin: 07/12/18 23:10 Dose: 650 mg Guaifenesin/Dextromethorphan (Robitussin Dm) 15 ml PO Q4H PRN PRN Reason: Cough Heparin Sodium (Porcine) (Heparin) 5,000 units SC BID [facility] Last Admin: 07/12/18 20:34 Dose: 5,000 units Ceftriaxone Sodium 1 gm/ (Sodium Chloride) 100 mls @ 200 mls/hr IVPB 1400 [facility] Last Admin: 07/12/18 13:38 Dose: 100 mls Vancomycin HCl 1 gm/ Device 200 mls @ 200 mls/hr IVPB 1100 [facility] Last Admin: 07/12/18 11:11 Dose: 200 mls Sodium Bicarbonate 50 meq/ (Dextrose/Sodium Chloride) 1,050 mls @ 100 mls/hr IV .[id number] [facility] Last Admin: 07/12/18 21:55 Dose: 1,050 mls Miscellaneous Medication (Pharmacy To Dose) 1 each IVPB PRN PRN PRN Reason: Pharmacy to dose Mycophenolate Dr 180 (Mg Tab) 0 each PO 799,1999 [facility] Last Admin: 07/12/18 20:34 Dose: 1 each Potassium Chloride (K-Dur) 20 meq PO BID-[facility] Stop: 07/18/18 17:01 Last Admin: 07/12/18 16:36 Dose: 20 meq Prednisone (Prednisone) 5 mg PO 0800 [facility] Last Admin: 07/12/18 08:57 Dose: 5 mg Senna (Senokot) 2 tab PO HSPRN PRN PRN Reason: Constipation Sodium Bicarbonate (Bicarbonate, Sodium) 325 mg PO BID [facility] Last Admin: 07/12/18 20:34 Dose: 325 mg Sodium Chloride (Flush - Normal Saline) 10 ml IVF Q12HR [facility] Last Admin: 07/12/18 21:56 Dose: 10 ml Sodium Chloride (Flush - Normal Saline) 10 ml IVF PRN PRN PRN Reason: Saline Flush Tacrolimus (Prograf) 0.5 mg PO 799,1999 [facility] Last Admin: 07/12/18 20:34 Dose: 0.5 mg Tramadol HCl (Ultram) 50 mg PO TID PRN PRN Reason: Pain Last Admin: 07/11/18 10:28 Dose: 50 mg
[2018-07-13 17:13] VITALS: BP 140/78; TEMP 99.1
--- NOTE | 2018-07-14 13:18 | DIS ---
DATE OF ADMISSION: 07/09/2018 DATE OF DISCHARGE: 07/13/2018 DISCHARGE DISPOSITION: To home. PRIMARY DISCHARGE DIAGNOSES: Sepsis, left groin abscess status post incision and drainage, acute kidney injury, metabolic acidosis, chronic kidney disease stage 3, history of renal transplant. PROCEDURES DONE DURING HOSPITALIZATION: Soft tissue ultrasound of the groin area done showed bilateral groin fluid collections with increased hyperemia of the edges in fact on the left relative to the right, maybe sequela for developing abscess. CT pelvis noncontrast done showed inflammatory changes and fluid in the left inguinal region extending inferiorly to the level of left scrotum with an irregularly slightly increased density fluid collection present , this measured around 3.1 cm. This could be a small focal abscess collection. Left inguinal lymphadenopathy, transplanted kidney in the right pelvis. Blood cultures x2 no growth. Wound cultures from the groin showed mixed skin melvi likely contaminated. White count of 20, H&H 11 and 32. Discharge white count of 13. Discharge BUN and creatinine is 29 and 2.5, BUN and creatinine had gone up to 46 and 3.1 on the 8th. Serum bicarbonate on the day of discharge is 10, on the 8th was less than 8. Urine creatinine was 90.49. DISCHARGE MEDICATIONS: Minocycline 100 mg twice daily for 7 days, rifampin 300 mg daily for 7 days. Please note patient needs to continue these two antibiotics once a month for 7 days for the next 4 months including the current one. Sodium bicarbonate 325 mg p.o. daily, Toprol-XL 50 mg daily. Prograf 0.5 mg p.o. twice daily, prednisone 5 mg p.o. daily, mycophenolate 540 mg p.o. twice daily, Toprol-XL 50 mg p.o. daily. ALLERGIES: No known drug allergies. INPATIENT CONSULTS: Dr. Eh Espinoza for nephrology, Dr. Garcia for infectious disease. DISCHARGE PLAN: Patient to have metabolic panel done on Thursday, the results of which will be faxed to Dr. Eh Espinoza. BRIEF COURSE DURING HOSPITALIZATION: Patient initially came in with complaints of left groin pain and swelling in the left inguinal area. He had a left inguinal abscess and had a white count of nearly 20. Patient was essentially admitted for sepsis with him being immunocompromised as well with renal transplant. He had incision and drainage of the abscess done by ER physician. He apparently had lot of purulent material expressed out, but cultures were contaminated from the sample. Blood cultures x2 showed no growth, he had severe metabolic acidosis with bicarb less than 8 as well. He was placed on a bicarbonate drip. His acute kidney injury is resolved with patient going back to his baseline creatinine of around 2.5. He was closely monitored by Dr. Eh Espinoza, his radiologic technology instructor as well. He has remained hemodynamically stable. As his cultures did not grow any organism and with him having multiple boils at various times over his body, patient was suspected to have Staph aureus infection and was placed on rifampin and minocycline by Dr. Garcia. He needs to continue this for 7 days for the next 4 months to completely cleanse himself of Staph infection. Please see a [id number] documentation on [facility] for the day of discharge. [facility]
== END 2018-07-13 19:05 | disposition home or self-care (01) | DRG 853 ==
LOC: ERS 08:41 → 2NO 13:46 → 3SE 07-13 00:19
PROVIDERS: ADMIT Internal Medicine; ATTEND Internal Medicine
PROC: 0Y960ZZ Drainage of Left Inguinal Region, Open Approach (ICD-10-PCS; principal; 2018-07-09)
DX: A41.9 Sepsis, unspecified organism (principal); N18.6 End stage renal disease; L02.214 Cutaneous abscess of groin; N17.9 Acute kidney failure, unspecified; E87.2 Acidosis; Z94.0 Kidney transplant status; K52.1 Toxic gastroenteritis and colitis; N02.8 Recurrent and persistent hematuria with other morphologic changes; L03.314 Cellulitis of groin; I13.11 Hypertensive heart and chronic kidney disease without heart failure, with stage 5 chronic kidney disease, or end stage renal disease; D89.9 Disorder involving the immune mechanism, unspecified; Z99.2 Dependence on renal dialysis; E87.6 Hypokalemia; I25.10 Atherosclerotic heart disease of native coronary artery without angina pectoris; H26.9 Unspecified cataract; K02.9 Dental caries, unspecified; E73.9 Lactose intolerance, unspecified
CPT/HCPCS: 10060; 36415; 72192; 76999; 80048; 80053; 80069; 80202; 82533; 82570; 83605; 84156; 85025; 87040; 87070; 87205; 96361; 96365; 96367; 96375; 96376; A4216; J0696; J1644; J2405; J2543; J3010; J3370; J7042; J7050; J7507

== ENCOUNTER 2019-02-01 14:44 | Outpatient (CLI) | payer BC ==
--- NOTE | 2019-02-01 16:05 | ULT ---
FRenal transplant ultrasound with Doppler interrogation: 02/01/2019 COMPARISON: None HISTORY: IgA nephropathy, end-stage renal disease status post renal transplant TECHNIQUE: Multiplanar grayscale sonographic imaging of the right lower quadrant transplanted kidney obtained. Region of renal fossa for assessment of [place] kidneys performed. The transplanted kidney i s assessed with color flow and spectral analysis FINDINGS: Neither [place] kidney couldn't be visualized in the renal fossa. Right lower quadrant transplanted kidney measures 10.5 x 5.5 x 5.4 cm. Echogenicity of the transplant ed kidney appears normal and cortical thickness is 2.7 cm. No hydronephrosis is noted. Vague hypoecho ic area measuring 6-7 mm in upper pole of transplanted right kidney may be artifactual or on the basi s of a small cyst. No hydronephrosis, stone, or solid renal mass. Transplanted renal artery and renal vein are patent and demonstrate appropriate waveforms. Resistive index of transplanted kidney is 0.61 in superior arcuate arteries, 0.74 in mid arcuate arteries, and 0.5 in inferior arcuate arteries. Peak systolic velocity of the transplanted renal artery is 76 cm/s. Abdominal aorta in this region demonstrates a peak systolic velocity of 100 cm/s. Transplanted renal artery/aortic ratio is approximately 0.76, within normal limits. IMPRESSION: Unremarkable Doppler ultrasound of right lower quadrant transplanted kidney.
== END 2019-02-01 14:45 | disposition home or self-care (01) ==
LOC: BICULT 14:44
PROVIDERS: ATTEND Internal Medicine Nephrology
DX: I13.11 Hypertensive heart and chronic kidney disease without heart failure, with stage 5 chronic kidney disease, or end stage renal disease (principal); N18.6 End stage renal disease; Z94.0 Kidney transplant status; N02.8 Recurrent and persistent hematuria with other morphologic changes
CPT/HCPCS: 76775

== ENCOUNTER 2019-05-28 10:55 | Inpatient (IN) | payer BC ==
[2019-05-28 11:43] LABS: #Eosinphils 0.2 thou/uL (0.0-0.7); #Lymphocytes 0.9 thou/uL (1.20-3.40); #Neutrophils 12.6 thou/uL (1.40-6.50); %Basophils 0.3 % (0.0-1.0); %Eosinophils 1.5 % (0.0-10.0); %Lymphocytes 6.1 % (21.0-51.0); %Monocytes 6.8 % (0.0-10.0); %Neutrophils 85.4 % (42.0-75.0); Hemoglobin 11.3 g/dL (14.0-18.0); Mean Corpuscular HGB CONC 33.6 g/dL (32.0-36.0); Mean Corpuscular Volume 92.3 fL (78.0-98.0); Mean Platelet Volume 7.8 fL (7.4-10.4); Platelet Count 313 thou/uL (130-400); RBC Distribution Width 13.4 % (11.5-14.5); Red Blood Cell (RBC) Count 3.64 mill/uL (4.70-6.10); White Blood Cell (WBC) Count 14.8 thou/uL (4.8-10.8)
[2019-05-28 12:15] LABS: ALT (SGPT) 18 U/L (8-55); AST (SGOT) 15 U/L (5-34); Albumin 3.5 g/dL (3.5-5.0); Alkaline Phosphatase 114 U/L (40-150); BUN (Urea Nitrogen) 68 mg/dL (8.9-20.6); Bilirubin, Total 0.6 mg/dL (0.2-1.2); Calc. Creatinine Clearance 0 mL/min (70-130); Calcium 8.1 mg/dL (7.8-10.44); Chloride 119 mmol/L (98-107); Estimated GFR-MDRD 18; Globulin 2.8 g/dL (2.4-3.5); Glucose 111 mg/dL (70-105); Potassium 3.6 mmol/L (3.5-5.1); Protein, Total 6.3 g/dL (6.0-8.3); Sodium 137 mmol/L (136-145)
[2019-05-28 12:23] LABS: Carbon Dioxide Less than 8 mmol/L (22-29)
--- NOTE | 2019-05-28 12:31 | RAD ---
PORTABLE CHEST 1 VIEW: Date: 05/28/19 Time: 1210 hours HISTORY: Kidney transplant, dizziness. FINDINGS: Comparison made with exam of 11/27/03. The heart size is normal. The lungs are expanded without lobar consolidation, pneumothoraces, or pleu ral effusions. IMPRESSION: No radiographic evidence of acute cardiopulmonary process. POS: [facility]
[2019-05-28] MEDS ORDERED: Sodium Bicarbonate 150 MEQ in Dextrose 5% in Water 1,000 ML IV SCH (13:30)
[2019-05-28] MEDS ORDERED: Sodium Chloride 0.9% 1,000 ML IV SCH (14:30)
[2019-05-28 16:51] VITALS: BMI 20.9
[2019-05-28] MEDS ORDERED: Ondansetron PF 4 MG/2 ML Vial IVP PRN (16:55)
[2019-05-28] MEDS ORDERED: Ondansetron ODT 4 MG TAB SL PRN (16:55)
[2019-05-28] MEDS: Sodium Chloride 0.9% 1,000 ML IV SCH (17:21)
--- NOTE | 2019-05-28 18:06 | HP ---
CHIEF COMPLAINT: General malaise. 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 The patient has a history of a renal transplant in 2003 and has subsequently had chronic kidney disease stage 3, followed by Dr. Espinoza. The patient also has a history of some superficial and skin abscesses felt to be likely MRSA; although, there are no MRSA cultures anywhere in the electronic record system from here to suggest that. The patient reports that about 10 days ago he had an incision in the left groin and thigh area that had incision and drainage as an outpatient by Dr. Stallings. He was subsequently placed on Keflex and after a couple of days of that, he had an increase in diarrhea. He reports that he has chronic low-grade diarrhea or loose stools as result of his anti-rejection medications, but there was a distinct change. He has now about 10 to 12 liquid stools per day. He has become progressively lightheaded, fatigued, and increasing shortness of breath with exertion and states he generally "feels like crap." He denies any specific fevers or chills. Denies any abdominal pain or nausea. States he has gotten so bad that he is unable to go to work, so he decided to being stubborn and present today. He denies any associated chest pain or heart related symptoms. REVIEW OF SYSTEMS: All other systems reviewed. All pertinent positives and negatives noted in the HPI. PAST MEDICAL HISTORY: Notable for the IgM nephropathy and subsequent chronic kidney disease stage 3. Also has had prior history of hypertension. PAST SURGICAL HISTORY: Renal transplant and intermittent drainage of superficial abscesses. FAMILY HISTORY: Reports his parents are alive and well. He is not aware of any other significant family medical related issues. SOCIAL HISTORY: The patient is a nonsmoker, nondrinker, and nondrug user. He is single. He is full code and his aunt Rosa Elena West is his surrogate decision maker. CURRENT MEDICATIONS: 1. Myfortic 180 mg three tablets b.i.d. 2. Prednisone 5 mg daily. 3. Captopril 50 mg b.i.d. 4. Cardizem 360 mg p.o. daily. 5. Tacrolimus 0.5 mg b.i.d. 6. Metoprolol 100 mg p.o. daily. PHYSICAL EXAMINATION: VITAL SIGNS: Blood pressure is 118/64, pulse 80, respirations 16, and O2 saturations 99% on room air. GENERAL APPEARANCE: Age-appropriate male, in no distress. He is awake, alert, oriented, pleasant, and cooperative. HEENT: [place]. No OP lesions. NECK: Supple and symmetric with no lymphadenopathy, JVD, or carotid bruits. HEART: Regular rate and rhythm without murmurs, gallops, or rubs. LUNGS: Clear to auscultation bilaterally with good chest wall expansion and air exchange. ABDOMEN: Soft, nontender, and nondistended. Positive bowel sounds. No masses. No organomegaly. EXTREMITIES: No cyanosis, clubbing, or edema. Left thigh/groin area appears to be healing well. NEUROLOGIC: The patient has spontaneous movement in all extremities. Normal cognitive function and cranial nerve function. PSYCHIATRIC: Normal affect and behavior. LABORATORY DATA: White count 14.3, hemoglobin 11.3, platelets 313. Sodium 137, potassium 3.6, chloride 119, CO2 less than 8, BUN 68, creatinine is 3.7, GFR is 18, glucose 111, lactic acid 0.04, calcium 8.1. LFTs normal. Troponin 0.01. DIAGNOSTIC DATA: Chest x-ray negative. IMPRESSION AND PLAN: 1. Acute on chronic renal failure, likely secondary to dehydration. 2. Dehydration secondary to gastrointestinal losses from diarrhea. We will continue to hydrate. He has been receiving fluids in the emergency department including D5 with bicarb. We will continue normal saline once those have completed. He has already received 1 L of fluids in the emergency department. We will continue to monitor his renal function with hydration. 3. Diarrheal illness. The patient reports chronic diarrhea secondary to his antirejection medications, however, that has substantially increased since he started the antibiotics. Even though, it was a very short course, the diarrhea has not resolved since he finished them. Concerning for the possibility of Clostridium difficile colitis, Clostridium difficile has been sent. Again, we will follow up on the results in try to replace the GI losses with hydration. 4. History of renal transplant. Continue his anti-rejection medications. 5. White count 14.8, possibly due to the prednisone, but could represent some underlying infection as well. 6. Acidosis secondary to worsening renal dysfunction and dehydration. We will continue to monitor after fluids. 7. Disposition. The patient will be placed on observation status with hydration, reassessment of his renal function. If diarrhea persists or if the C. diff is positive, he will likely need to convert to inpatient status. We will have Dr. Espinoza follow the patient as well. Job ID: [id number]
[2019-05-28] MEDS ORDERED: Mycophenolate ER 180 MG TAB PO SCH (20:45)
[2019-05-28] MEDS ORDERED: Tacrolimus 0.5 MG CAP PO SCH (20:45)
[2019-05-29] MEDS: Sodium Chloride 0.9% 1,000 ML IV SCH (00:50)
[2019-05-29 05:29] LABS: #Eosinphils 0.2 thou/uL (0.0-0.7); #Lymphocytes 0.7 thou/uL (1.20-3.40); #Neutrophils 9.4 thou/uL (1.40-6.50); %Basophils 0.1 % (0.0-1.0); %Eosinophils 1.5 % (0.0-10.0); %Monocytes 9.1 % (0.0-10.0); %Neutrophils 83.4 % (42.0-75.0); Hemoglobin 10.8 g/dL (14.0-18.0); Mean Corpuscular HGB CONC 33.8 g/dL (32.0-36.0); Mean Corpuscular Volume 91.7 fL (78.0-98.0); Mean Platelet Volume 8.3 fL (7.4-10.4); Platelet Count 271 thou/uL (130-400); RBC Distribution Width 13.2 % (11.5-14.5); Red Blood Cell (RBC) Count 3.48 mill/uL (4.70-6.10); White Blood Cell (WBC) Count 11.3 thou/uL (4.8-10.8)
[2019-05-29 05:49] LABS: BUN (Urea Nitrogen) 69 mg/dL (8.9-20.6); Calc. Creatinine Clearance 24 mL/min (70-130); Calcium 7.9 mg/dL (7.8-10.44); Chloride 120 mmol/L (98-107); Estimated GFR-MDRD 19; Glucose 104 mg/dL (70-105); Sodium 137 mmol/L (136-145)
[2019-05-29 05:53] LABS: Carbon Dioxide Less than 8 mmol/L (22-29); Potassium 2.9 mmol/L (3.5-5.1)
[2019-05-29] MEDS ORDERED: Potassium Chloride 20 MEQ TAB PO SCH (06:00)
[2019-05-29] MEDS ORDERED: Sodium Bicarbonate 150 MEQ in Dextrose 5% in Water 1,000 ML IV SCH (06:00)
[2019-05-29] MEDS ORDERED: Potassium Chloride 20 MEQ in Premix Bag 1 BAG IVPB SCH (06:15)
[2019-05-29] MEDS ORDERED: Mycophenolate ER 180 MG TAB PO SCH (08:00)
[2019-05-29] MEDS ORDERED: PREDNISONE 5 MG PO SCH (08:00)
[2019-05-29] MEDS ORDERED: Diphenoxylate HCl/Atropine Tablet PO PRN (08:27)
--- NOTE | 2019-05-29 08:29 | PDOC.HOSPP ---
- Subjective Subjective: Still has persistent watery diarrhea. Had been loose stools from anti- rejection meds, but now watery and much more frequent. Has urgency and BM stimulated by any po intake. Has lost some weight with this, but can't quantify. - Objective Vital Signs & Weight: Vital Signs (12 hours) Temp Pulse Resp BP Pulse Ox 05/29/19 07:55 98.4 F 87 15 105/61 100 05/29/19 04:10 98.0 F 85 16 110/62 99 Weight Weight 141 lb 7 oz I&O: 05/28/19 05/29/19 05/30/19 06:59 06:59 06:59 Intake Total 1440 Output Total 0 Balance 1440 Result Diagrams: 05/29/19 04:51 05/29/19 04:51 ROS - Review of Systems All systems: All other ROS were reviewed and found negative. - Exam NAD Neck: supple, symmetric, no JVD, no Thyromegaly, no lymphadenopathy, no carotid bruit Heart: RRR, no murmur, no gallops, no rubs, normal peripheral pulses Respiratory: CTAB, no wheezes, no rales, no ronchi, normal chest expansion, no tachypnea, normal percussion Gastrointestinal: soft, non-tender, non-distended, normal bowel sounds, no palpable masses, no hepatomegaly, no splenomegaly, no bruit Extremities: no cyanosis, no clubbing, no edema Neurological: CN's grossly intact, normal sensation to touch, no weakness, no focal deficits, no new deficit Musculoskeletal: normal tone (Some mild sarcopenia), normal strength Psychiatric: normal affect, normal behavior, A&O x 3 Hosp A/P (1) SULEMA (acute kidney injury) Code(s): N17.9 - ACUTE KIDNEY FAILURE, UNSPECIFIED Status: Acute (2) Metabolic acidosis Code(s): E87.2 - ACIDOSIS Status: Acute (3) Diarrhea Code(s): R19.7 - DIARRHEA, UNSPECIFIED Status: Acute (4) Hypokalemia Code(s): E87.6 - HYPOKALEMIA Status: Acute (5) Dehydration Code(s): E86.0 - DEHYDRATION Status: Acute (6) CKD (chronic kidney disease) stage 3, GFR 30-59 ml/min Code(s): N18.3 - CHRONIC KIDNEY DISEASE, STAGE 3 (MODERATE) Status: Chronic (7) H/O kidney transplant Status: Chronic - Plan Had bicarb yesterday along with IVF. Still acidotic this morning. Renal fxn has not significantly changed overnight. Diarrhea persists. C diff negative. Will check additional stool studies. Continue IVF Start Lomotil when specimen collected. Consult GI for persistent diarrhea leading to dehydration and SULEMA. Nephrology consult pending. Replace potassium.
[2019-05-29] MEDS ORDERED: Tacrolimus 0.5 MG CAP PO SCH (09:00)
[2019-05-29] MEDS ORDERED: predniSONE 5 MG TAB PO SCH (14:00)
[2019-05-29] MEDS ORDERED: Magnesium Citrate 300 ML BOT PO SCH ×2 (18:00)
[2019-05-29] MEDS: Tacrolimus 0.5 MG CAP PO SCH (19:52)
[2019-05-29] MEDS: Potassium Chloride 20 MEQ TAB PO SCH (19:52)
[2019-05-29] MEDS: Sodium Bicarbonate 50 MEQ in Dextrose 5 %-0.45 % NaCl 1,000 ML IV SCH (19:54)
[2019-05-29 22:44] LABS: Creatinine, Urine 118.96 mg/dL (63-166)
[2019-05-30] MEDS: Sodium Bicarbonate 50 MEQ in Dextrose 5 %-0.45 % NaCl 1,000 ML IV SCH ×3 (04:12→18:41)
[2019-05-30 05:21] LABS: Anion Gap 13 mmol/L (10-20); BUN (Urea Nitrogen) 70 mg/dL (8.9-20.6); Calc. Creatinine Clearance 23 mL/min (70-130); Calcium 7.7 mg/dL (7.8-10.44); Carbon Dioxide 8 mmol/L (22-29); Chloride 116 mmol/L (98-107); Estimated GFR-MDRD 17; Glucose 113 mg/dL (70-105); Potassium 3.1 mmol/L (3.5-5.1); Sodium 134 mmol/L (136-145)
[2019-05-30] MEDS ORDERED: Sodium Bicarb 50 MEQ/50 ML VIAL ONE (08:02)
[2019-05-30] MEDS ORDERED: Ondansetron HCl/PF 4 MG/2 ML Vial IVP PRN (10:08)
[2019-05-30] MEDS ORDERED: Promethazine HCl 25 MG/ML VIAL IM PRN (10:08)
[2019-05-30] MEDS ORDERED: Promethazine HCl 25 MG/ML VIAL SLOW IVP PRN (10:08)
--- NOTE | 2019-05-30 11:15 | CON ---
DATE OF CONSULTATION: 05/29/2019 REASON FOR CONSULTATION: Diarrhea. HISTORY OF PRESENT ILLNESS: Mr. Chowdary is a 43-year-old gentleman who underwent renal transplant in 2005 for IgA nephropathy. He has actually done pretty well since that time, but really over the past several years, he has had on and off issues with diarrhea. He actually was admitted for that in 2016, which showed normal stool studies and he had a colonoscopy that was normal with very mild changes in the cecal area, which were nonspecific and those biopsies showed nonspecific active colitis. No chronic changes. No granulomatous changes and special stains for CMV and HSV were negative. It seems that Questran was advised at that point in time and that is where he needed any further evaluation. The patient notes that on and off he has had diarrhea since then. For the past 3 to 4 weeks, seems to be worsening. There have been some thought that maybe related to his immunosuppression medications at times. He has had titers checked for CMV and HSV, which have not been excessively elevated. He reports about 3 to 4 weeks ago, he had a groin infection which he has occasionally gets hot, and that had drained with Dr. Mallory and we placed on the antibiotics for 4 days, and since then, the diarrhea seems to have worsened. He does not typically have issues with antibiotics. He denies any other supplements or medications other than what is prescribed. He has had no recent medication changes. The diarrhea seems to be very watery. It is not with blood. There is no mucus. There is no cramping or pain. It tends to be if he eats or drinks anything. If he is not eating or drinking, it tends to go away. When he does eat and drink, he has been taking Imodium at home. In fact, he was taking that today here, his own supply. He denies any associated rashes, arthralgias, myalgias, oral ulcers, fever, or chills. He has had no flushing with the diarrhea. He does note a weight loss of about 50 pounds in the past year. In 2017, he had a CAT scan of the abdomen and pelvis for infection in the left inguinal region. This admission, he was having about 15 to 20 bowel movements a day for the past couple weeks. He notes that it got so bad that he has not really been able to go to work and became dehydrated. In fact, on presentation to the ER, he had a bump in his creatinine to 3.7 from baseline around 1.6 last October, and 2.6 on 01/12/2019, and 2.65 on 04/06. Additionally, he had a serum bicarb that showed a less than 8 with anion gap of reportedly over 100. On 04/06/2019, he had an anion gap of 12 with a serum bicarb of 15, BUN of 39, and creatinine of 2.65. PAST HISTORY: 1. End-stage renal disease secondary to IgA nephropathy, chronic kidney disease stage 3. 2. Hypertension. 3. Intermittent inguinal abscesses. No history of perianal abscesses. PAST SURGICAL HISTORY: Renal transplant, intermittent drainage of these abscesses as noted above, dialysis graft. FAMILY HISTORY: No diarrheal illness or GI illnesses or inflammatory bowel disease or celiac disease in the family that he is aware of. SOCIAL HISTORY: Nonsmoker, nondrinker, nondrug user, single. MEDICATIONS: 1. Myfortic 180 mg three tablets b.i.d. 2. Prednisone 5 mg daily. 3. Captopril 50 mg b.i.d. 4. Cardizem 360 mg p.o. daily. 5. Tacrolimus 0.5 b.i.d. 6. Metoprolol 100 mg daily. Present medications; 1. Cardizem. 2. Lomotil 1 q.6 hours p.r.n. 3. Toprol-XL 100 mg daily. 4. Myfortic b.i.d. 5. Prednisone 5 mg daily. 6. Tacrolimus 0.5 b.i.d. PHYSICAL EXAMINATION: VITAL SIGNS: The patient is resting comfortably in bed. Temperature is 98.4, pulse 96, blood pressure 113/67. GENERAL: He is alert and oriented to person, place, and time. He has appropriate affect and mood. HEENT: Oropharynx is slightly dry. NECK: Supple. No adenopathy. LUNGS: Clear. HEART: Regular rate and rhythm without clicks or murmurs. ABDOMEN: Soft and nontender with no rebound or guarding. Scant bowel sounds are present. EXTREMITIES: No clubbing, cyanosis, or edema. There is no evidence of adenopathy. There is some scarring in the inguinal regions. NEUROLOGIC: Grossly intact. LABORATORY STUDIES: On admission yesterday, sodium was 137, potassium 3.6 and today was 2.9, it has been replaced. Chloride was 119 yesterday and 120 today. Bicarb less than 8. BUN 68, 69 today, creatinine was 3.7, now 3.62, calcium 8.1. AST and ALT are 15 and 18, alkaline phosphatase 114, bilirubin was 0.1, calcium is 8.1, protein 6.3, albumin 3.5, lactic acid 0.4. Phosphorus and magnesium have not yet been checked, but on 04/06, phosphorus was normal. CRP was 0.85 in 2016. CMV antibody was 3.8 in 2018. CMV DNA was last checked in 2014 was normal. White count 11.3, hemoglobin 10.8, platelet count 271, normal differential. Blood cultures, no growth to-date. Stool C difficile antigen toxin negative, parasite screen negative for Giardia or Cryptosporidium. Lactoferrin stool negative. Fecal occult blood test negative. Campylobacter and shiga toxin negative. Cultures pending. Also stool for cyclosporine is pending. ASSESSMENT: This is a 43-year-old gentleman who has had issues with diarrhea, usually only present if he is eating or drinking. This seems to be an issue with rapid transit. It has come and go for several years. In fact, 2 years ago, Dr. Faria performed colonoscopy and random biopsies, where he saw a little bit of mild irregularity of cecal area, but the pathology just showed nonspecific acute colitis. It was unclear even if really related to the process. It seems at that time he was treated with Questran and apparently his stool studies were negative and those have been too long ago and not easily locatable in the computer. This diarrhea seems to be either osmotic or malabsorptive, although he has no fat or undigested meats in the stools and they can happen even with water. He has no diarrhea if he does not eat, which makes a secretory cause less likely. Differential diagnosis include small bowel bacterial overgrowth, celiac disease, opportunistic infection related to immunosuppression (this is less likely within that and they does not appear acutely ill and he is not having diarrhea between meals). It seems his mycophenolate is going to be changed to Imuran as this can cause diarrhea sometimes in transplant patients on its own, irregardless of immunosuppression. PLAN: 1. Celiac panel, CMV DNA. Await cyclosporine stool studies. Await stool culture. Heavy growth of normal melvi, can consider empiric antibiotic therapy. 2. It does not seem that he has lactose intolerance. He had milk with cereal today and had no problems. 3. In the short term, I think we give him Lomotil with every meal to prevent dehydration. 4. With his severe dehydration, he needs aggressive fluid resuscitation. If that has not yet been ordered by Nephrology, we will go ahead and do that and we will check a stool for fecal fat, although I suspect this will be normal. If the serologies were otherwise negative, and we are not making headway later this week, we will consider upper and lower endoscopy of small bowel and colon and colon biopsies. Job ID: [id number]
--- NOTE | 2019-05-30 11:40 | PDOC.HOSPP ---
- Subjective Subjective: Had endoscopy this morning. Tolerated it well. Reports the diarrhea was slightly better yesterday. Has a little nausea now, but feels like it is related to the sedation for the endoscopy. - Objective Vital Signs & Weight: Vital Signs (12 hours) Temp Pulse Resp BP BP Pulse Ox 05/30/19 10:30 97.8 F 71 20 110/71 100 05/30/19 07:20 100 05/30/19 04:22 98.3 F 68 16 98/62 96 05/30/19 00:00 98.3 F 76 18 104/66 100 Weight Weight 141 lb 7 oz I&O: 05/29/19 05/30/19 05/31/19 06:59 06:59 06:59 Intake Total 1440 1979 Output Total 0 Balance 1440 1979 Result Diagrams: 05/29/19 04:51 05/30/19 04:32 ROS - Review of Systems All systems: All other ROS were reviewed and found negative. - Medication Medications: Active Medications Generic Name Dose Route Start Last Admin Trade Name Freq PRN Reason Stop Dose Admin Diltiazem HCl 360 mg 05/29/19 21:00 05/29/19 19:52 Cardizem Cd PO 360 mg HS JANIS Administration Sodium Bicarbonate 50 meq/ 1,050 mls @ 125 mls/hr 05/29/19 18:00 05/30/19 04: 12 Dextrose/Sodium Chloride IV 06/01/19 18:01 1,050 mls .[id number] JANIS Administration Metoprolol Succinate 100 mg 05/29/19 09:00 05/29/19 09:28 Toprol Xl PO 100 mg DAILY JANIS Administration Potassium Chloride 20 meq 05/29/19 21:00 05/29/19 19:52 K-Dur PO 06/01/19 21:01 20 meq TID JANIS Administration Tacrolimus 0.5 mg 05/29/19 20:00 05/29/19 19:52 Prograf PO 0.5 mg 799,1999 JANIS Administration - Exam NAD, awake alert Neck: supple, symmetric, no JVD, no Thyromegaly, no lymphadenopathy, no carotid bruit Heart: RRR, no murmur, no gallops, no rubs, normal peripheral pulses Respiratory: CTAB, no wheezes, no rales, no ronchi, normal chest expansion, no tachypnea, normal percussion Gastrointestinal: soft, non-tender, non-distended, normal bowel sounds, no palpable masses, no hepatomegaly, no splenomegaly, no bruit Extremities: no cyanosis, no clubbing, no edema Neurological: CN's grossly intact, no new deficit Musculoskeletal: normal tone, normal strength, no muscle wasting Psychiatric: normal affect, normal behavior, A&O x 3 Hosp A/P (1) SULEMA (acute kidney injury) Code(s): N17.9 - ACUTE KIDNEY FAILURE, UNSPECIFIED Status: Acute (2) Metabolic acidosis Code(s): E87.2 - ACIDOSIS Status: Acute (3) Diarrhea Code(s): R19.7 - DIARRHEA, UNSPECIFIED Status: Acute (4) Hypokalemia Code(s): E87.6 - HYPOKALEMIA Status: Acute (5) Dehydration Code(s): E86.0 - DEHYDRATION Status: Acute (6) CKD (chronic kidney disease) stage 3, GFR 30-59 ml/min Code(s): N18.3 - CHRONIC KIDNEY DISEASE, STAGE 3 (MODERATE) Status: Chronic (7) H/O kidney transplant Status: Chronic - Plan Still has significant acidosis. Dr. Espinoza has added Bicarb with IVF, but acidosis persists this morning. Dr. Espinoza also stopped the myfortic and started immuran. Suspects the myfortic as the culprit for the diarrhea. Increased the Lomotil. Dr. Hamilton did endoscopy this morning. Biopsies taken. Report pending.
--- NOTE | 2019-05-30 11:46 | OP ---
DATE OF PROCEDURE: 05/30/2019 PROCEDURES PERFORMED: Esophagogastroduodenoscopy with small bowel biopsy and esophageal biopsy, colonoscopy with random biopsies. ANESTHESIA: TIVA. PREPROCEDURE DIAGNOSES: 1. Diarrhea of unclear etiology with significant weight loss of 50 pounds. Negative stool studies for blood, lactoferrin, ova and parasites, Clostridium difficile, and routine cultures. 2. Chronic immunosuppression. POSTPROCEDURE DIAGNOSES: 1. Mild esophagitis, likely reflux. Biopsies obtained. No appearance suggestive of viral infection. 2. Normal stomach. 3. Duodenum, normal third portion except for mild loss of vascular pattern in the third portion of duodenum with mild scalloping of some of the folds. Biopsies obtained to rule out celiac. 4. Colonoscopy to the ileum normal. Random biopsies taken from the left and right colon, taken and submitted to Pathology. No signs of colitis endoscopically. PROCEDURE IN DETAIL: After the patient was informed of the risks, benefits, and possible complications of endoscopy including perforation, bleeding, reaction to medication, and aspiration, informed consent was obtained. After the bite-block was placed inside the orifice, the endoscope was advanced through the esophagus, stomach, and second and third portion of the duodenum. There was some exudate in the distal esophagus consistent with reflux with some erythema. There were no evidence of blistering lesions or plaques to suggest a viral infection or Alyssa. Biopsies were obtained as he was immunosuppressed. The scope was introduced into the stomach, which was normal in forward and retroflexed views and had normal distensibility. The duodenum, the second and third portions appeared normal except for some mild inflammation of the duodenal folds in the second and third portion, and these were biopsied and submitted to Pathology. The scope was then removed. The patient was turned in the room and a rectal exam was performed, which was normal. The endoscope was advanced to the anal canal through the colon. The cecum was identified by the ileocecal valve and appendiceal orifice. The terminal ileum was entirely normal. The colon was normal. No evidence of colitis, active acute inflammation, loss of vascular pattern, edema, erythema, or ulceration. Random biopsies were taken from the left and right colon and submitted to Pathology. Retroflexed views were normal. The scope was removed. The patient tolerated the procedure well with no complications. Job ID: [id number]
[2019-05-30] MEDS: azaTHIOprine 50 MG TAB PO SCH (12:15)
[2019-05-30] MEDS: predniSONE 5 MG TAB PO SCH (12:15)
[2019-05-30] MEDS: Potassium Chloride 20 MEQ TAB PO SCH ×3 (12:16→19:40)
[2019-05-30] MEDS: Tacrolimus 0.5 MG CAP PO SCH ×2 (12:19→19:40)
[2019-05-30 15:05] LABS: Magnesium 0.9 mg/dL (1.6-2.6)
[2019-05-30 15:37] LABS: Folate (Folic Acid) 8.7 ng/mL (7.0-31.4)
[2019-05-30] MEDS ORDERED: Magnesium 2 GM/50 ML 2 GM in Premix Bag 1 BAG IVPB SCH (15:45)
[2019-05-30] MEDS ORDERED: PHENYLEPHRINE-NS 100 MCG/ML 10 ML SYRINGE ONE (17:04)
[2019-05-30] MEDS ORDERED: PROPOFOL 200 MG/20 ML VIAL ONE (17:04)
[2019-05-30] MEDS ORDERED: Lidocaine 1% PF 5 ML VIAL ONE (17:04)
[2019-05-31] MEDS: Sodium Bicarbonate 50 MEQ in Dextrose 5 %-0.45 % NaCl 1,000 ML IV SCH ×3 (02:52→22:02)
[2019-05-31 04:57] LABS: ALT (SGPT) 12 U/L (8-55); AST (SGOT) 9 U/L (5-34); Albumin 2.8 g/dL (3.5-5.0); Alkaline Phosphatase 89 U/L (40-150); Anion Gap 13 mmol/L (10-20); BUN (Urea Nitrogen) 59 mg/dL (8.9-20.6); Bilirubin, Total 0.7 mg/dL (0.2-1.2); Calc. Creatinine Clearance 26 mL/min (70-130); Calcium 7.9 mg/dL (7.8-10.44); Carbon Dioxide 11 mmol/L (22-29); Chloride 116 mmol/L (98-107); Estimated GFR-MDRD 20; Globulin 2.3 g/dL (2.4-3.5); Glucose 131 mg/dL (70-105); Magnesium 1.4 mg/dL (1.6-2.6); Protein, Total 5.1 g/dL (6.0-8.3); Sodium 137 mmol/L (136-145)
[2019-05-31 05:04] LABS: Potassium 2.8 mmol/L (3.5-5.1)
[2019-05-31 07:35] LABS: Ref Lab Test Ordered SOMATOSTATIN; Reference Lab Name LABCORP
[2019-05-31] MEDS: azaTHIOprine 50 MG TAB PO SCH (07:45)
[2019-05-31] MEDS: Magnesium Oxide 400 MG TAB PO SCH (07:46)
[2019-05-31] MEDS: Potassium Chloride 20 MEQ TAB PO SCH ×3 (07:46→20:07)
[2019-05-31] MEDS: predniSONE 5 MG TAB PO SCH (07:46)
[2019-05-31] MEDS: Tacrolimus 0.5 MG CAP PO SCH ×2 (08:35→20:07)
[2019-05-31 12:45] LABS: Ref Lab Test Ordered MICROSPORIDIA/ISOS; Reference Lab Name LABCORP
[2019-05-31] MEDS: Diphenoxylate HCl/Atropine Tablet PO PRN (18:13)
--- NOTE | 2019-05-31 18:52 | PDOC.HOSPP ---
- Subjective Subjective: Doing well today. Diarrhea has decreased to one loose BM per day. Otherwise feels ok, but generally weak. - Objective Vital Signs & Weight: Vital Signs (12 hours) Temp Pulse Resp BP Pulse Ox 05/31/19 07:59 98.5 F 74 18 112/75 98 Weight Admit Weight 141 lb 7 oz Weight 141 lb 7 oz I&O: 05/30/19 05/31/19 06/01/19 06:59 06:59 06:59 Intake Total 1979 4080 2700 Balance 1979 4080 2700 Result Diagrams: 05/29/19 04:51 05/31/19 04:18 ROS - Review of Systems All systems: All other ROS were reviewed and found negative. - Medication Medications: Active Medications Generic Name Dose Route Start Last Admin Trade Name Freq PRN Reason Stop Dose Admin Azathioprine 100 mg 05/30/19 09:00 05/31/19 07:45 Imuran PO 100 mg DAILY JANIS Administration Diltiazem HCl 360 mg 05/29/19 21:00 05/30/19 19:40 Cardizem Cd PO 360 mg HS JANIS Administration Diphenoxylate HCl/Atropine 2 tab 05/29/19 17:31 05/31/19 18:13 Lomotil PO 2 tab PRN PRN Administration Diarrhea/Loose Stools Sodium Bicarbonate 50 meq/ 1,050 mls @ 125 mls/hr 05/29/19 18:00 05/31/19 11: 22 Dextrose/Sodium Chloride IV 06/01/19 18:01 1,050 mls .Q8H24M JANIS Administration Magnesium Oxide 400 mg 05/31/19 09:00 05/31/19 07:46 Magnesium Oxide PO 400 mg DAILY JANIS Administration Metoprolol Succinate 100 mg 05/29/19 09:00 05/31/19 07:46 Toprol Xl PO 100 mg DAILY JANIS Administration Potassium Chloride 40 meq 05/31/19 09:00 05/31/19 15:33 K-Dur PO 40 meq TID JANIS Administration Prednisone 5 mg 05/30/19 09:00 05/31/19 07:46 Prednisone PO 5 mg DAILY JANIS Administration Tacrolimus 0.5 mg 05/29/19 20:00 05/31/19 08:35 Prograf PO 0.5 mg 08,1999 JANIS Administration - Exam NAD, awake alert Neck: supple, symmetric, no JVD, no Thyromegaly, no lymphadenopathy, no carotid bruit Heart: RRR, no murmur, no gallops, no rubs, normal peripheral pulses Respiratory: CTAB, no wheezes, no rales, no ronchi, normal chest expansion, no tachypnea, normal percussion Gastrointestinal: soft, non-tender, non-distended, normal bowel sounds, no palpable masses, no hepatomegaly, no splenomegaly, no bruit Extremities: no cyanosis, no clubbing, no edema Neurological: CN's grossly intact, normal sensation to touch, no weakness, no focal deficits, no new deficit Musculoskeletal: normal tone, normal strength, no muscle wasting Psychiatric: normal affect, normal behavior, A&O x 3 Hosp A/P (1) SULEMA (acute kidney injury) Code(s): N17.9 - ACUTE KIDNEY FAILURE, UNSPECIFIED Status: Acute (2) Metabolic acidosis Code(s): E87.2 - ACIDOSIS Status: Acute (3) Diarrhea Code(s): R19.7 - DIARRHEA, UNSPECIFIED Status: Acute (4) Hypokalemia Code(s): E87.6 - HYPOKALEMIA Status: Acute (5) Dehydration Code(s): E86.0 - DEHYDRATION Status: Acute (6) CKD (chronic kidney disease) stage 3, GFR 30-59 ml/min Code(s): N18.3 - CHRONIC KIDNEY DISEASE, STAGE 3 (MODERATE) Status: Chronic (7) H/O kidney transplant Status: Chronic - Plan Improving with change of the Myfortic to Imuran. Bicarb is improving. Still on infusion. Potassium low again. Increased the po potassium. Recheck in am. Mag still a little low. Another round. GI studies and biopsies negative. Nephrology following. Will continue bicarb gtt and replacing lytes until stabilized.
--- NOTE | 2019-05-31 18:55 | PRG ---
DATE OF SERVICE: 05/31/2019 SUBJECTIVE: Mr. Chowdary had 3 stools today, 1 was loose, this is down from 10 to 12 a day when he was at home earlier on, things changed to this point as his mycophenolate has been held. OBJECTIVE: VITAL SIGNS: Temperature 98.5, pulse 74, blood pressure 112/75. ABDOMEN: Soft and nontender. LABORATORY DATA: Sodium 137, potassium 2.8, it has been replaced. BUN and creatinine are 59 and 3.38. Magnesium is 1.4, it has been replaced. Microbiology: Campylobacter showed stool negative culture, heavy growth normal melvi. Occult blood negative. Stool lactoferrin negative. Rapid parasite screen negative for Giardia and Cryptosporidium. Clostridium difficile negative. All other studies pending. ASSESSMENT: 1. Diarrhea of unclear etiology, possibly related to mycophenolate. Extensive workup ordered. 2. Esophagogastroduodenoscopy, notable for mild reflux esophagitis. Random biopsies of the duodenum, stomach, and colon were all normal. RECOMMENDATIONS: PPI therapy for his reflux esophagitis. Await stool studies. Job ID: [id number]
[2019-06-01 05:09] LABS: ALT (SGPT) 8 U/L (8-55); AST (SGOT) 8 U/L (5-34); Albumin 2.7 g/dL (3.5-5.0); Alkaline Phosphatase 81 U/L (40-150); Anion Gap 11 mmol/L (10-20); BUN (Urea Nitrogen) 49 mg/dL (8.9-20.6); Bilirubin, Total 0.5 mg/dL (0.2-1.2); Calc. Creatinine Clearance 31 mL/min (70-130); Carbon Dioxide 13 mmol/L (22-29); Chloride 117 mmol/L (98-107); Estimated GFR-MDRD 25; Globulin 2.1 g/dL (2.4-3.5); Glucose 122 mg/dL (70-105); Potassium 3.2 mmol/L (3.5-5.1); Protein, Total 4.8 g/dL (6.0-8.3); Sodium 138 mmol/L (136-145)
[2019-06-01] MEDS: Sodium Bicarbonate 50 MEQ in Dextrose 5 %-0.45 % NaCl 1,000 ML IV SCH ×2 (05:30→13:53)
[2019-06-01] MEDS: azaTHIOprine 50 MG TAB PO SCH (08:17)
[2019-06-01] MEDS: predniSONE 5 MG TAB PO SCH (08:17)
[2019-06-01] MEDS: Magnesium Oxide 400 MG TAB PO SCH (08:17)
[2019-06-01] MEDS: Potassium Chloride 20 MEQ TAB PO SCH ×3 (08:17→19:50)
[2019-06-01] MEDS: Tacrolimus 0.5 MG CAP PO SCH ×2 (08:36→19:49)
--- NOTE | 2019-06-01 10:37 | PDOC.HOSPP ---
- Subjective Subjective: Doing well overall. Diarrhea still at a minimum. No BM since last night. He does complain of shanice-rectal pain. UOP has noticeably increased. - Objective Vital Signs & Weight: Vital Signs (12 hours) Temp Pulse Resp BP Pulse Ox 06/01/19 07:58 98.7 F 75 18 118/67 100 Weight Admit Weight 141 lb 7 oz Weight 141 lb 7 oz I&O: 05/31/19 06/01/19 06/02/19 06:59 06:59 06:59 Intake Total 4080 5030 Output Total 600 Balance 4080 4430 Result Diagrams: 05/29/19 04:51 06/01/19 04:14 ROS - Review of Systems All systems: All other ROS were reviewed and found negative. - Medication Medications: Active Medications Generic Name Dose Route Start Last Admin Trade Name Freq PRN Reason Stop Dose Admin Azathioprine 100 mg 05/30/19 09:00 06/01/19 08:17 Imuran PO 100 mg DAILY JANIS Administration Diltiazem HCl 360 mg 05/29/19 21:00 05/31/19 20:07 Cardizem Cd PO 360 mg HS JANIS Administration Diphenoxylate HCl/Atropine 2 tab 05/29/19 17:31 05/31/19 18:13 Lomotil PO 2 tab PRN PRN Administration Diarrhea/Loose Stools Sodium Bicarbonate 50 meq/ 1,050 mls @ 125 mls/hr 05/29/19 18:00 06/01/19 05: 30 Dextrose/Sodium Chloride IV 06/01/19 18:01 1,050 mls .Q8H24M JANIS Administration Magnesium Oxide 400 mg 05/31/19 09:00 06/01/19 08:17 Magnesium Oxide PO 400 mg DAILY JANIS Administration Metoprolol Succinate 100 mg 05/29/19 09:00 06/01/19 08:17 Toprol Xl PO 100 mg DAILY JANIS Administration Pantoprazole Sodium 40 mg 06/01/19 09:00 06/01/19 08:17 Protonix PO 40 mg DAILY JANIS Administration Potassium Chloride 40 meq 05/31/19 09:00 06/01/19 08:17 K-Dur PO 40 meq TID JANIS Administration Prednisone 5 mg 05/30/19 09:00 06/01/19 08:17 Prednisone PO 5 mg DAILY JANIS Administration Tacrolimus 0.5 mg 05/29/19 20:00 06/01/19 08:36 Prograf PO 0.5 mg 08,1999 JANIS Administration - Exam NAD, awake alert Neck: supple, symmetric, no JVD, no Thyromegaly, no lymphadenopathy, no carotid bruit Heart: RRR, no murmur, no gallops, no rubs, normal peripheral pulses Respiratory: CTAB, no wheezes, no rales, no ronchi, normal chest expansion, no tachypnea, normal percussion Gastrointestinal: soft, non-tender, non-distended, normal bowel sounds, no palpable masses, no hepatomegaly, no splenomegaly, no bruit Extremities: no cyanosis, no clubbing, no edema Skin: normal turgor (Multiple acneiform lesions on buttocks. Generalized erythema and induration circumferentially around the anus. Has a lesion at 3: 00 position that is raised, fluctuant and extremely TTP. Looks like early abscess lesion.) Neurological: CN's grossly intact, normal sensation to touch, no weakness, no focal deficits, no new deficit Musculoskeletal: diffuse muscle atrophy Hosp A/P (1) SULEMA (acute kidney injury) Code(s): N17.9 - ACUTE KIDNEY FAILURE, UNSPECIFIED Status: Acute (2) Metabolic acidosis Code(s): E87.2 - ACIDOSIS Status: Acute (3) Diarrhea Code(s): R19.7 - DIARRHEA, UNSPECIFIED Status: Acute (4) Hypokalemia Code(s): E87.6 - HYPOKALEMIA Status: Acute (5) Dehydration Code(s): E86.0 - DEHYDRATION Status: Acute (6) CKD (chronic kidney disease) stage 3, GFR 30-59 ml/min Code(s): N18.3 - CHRONIC KIDNEY DISEASE, STAGE 3 (MODERATE) Status: Chronic (7) H/O kidney transplant Status: Chronic (8) Shanice-rectal abscess Code(s): K61.1 - RECTAL ABSCESS Status: Acute - Plan Start abx (Zosyn) for shanice-rectal abscess. Consult Surgery as he has immunosuppression. Renal function, lytes and acidosis improving. Diarrhea improving. If shanice-rectal condition stabilizes, may be able DC home soon from the perspective of his other conditions. Still needs some IV bicab. Says he was given bicarb po in the past and thinks it may have caused some upper GI distress/burning. Not sure if it was related.
[2019-06-01] MEDS: Piperacillin/Tazobactam 2.25 GM in Sodium Chloride 0.9% 100 ML IVPB SCH ×2 (11:18→17:49)
[2019-06-01] MEDS: Diphenoxylate HCl/Atropine Tablet PO PRN ×2 (11:18→17:49)
--- NOTE | 2019-06-01 14:13 | ULT ---
ULTRASOUND BUTTOCK: 06/01/19 HISTORY: 43-year-old male with perirectal abscess. FINDINGS: There are two perianal masses, one on the right and one on the left. The right one measures approximately 2.5 x 2 x 2 cm. The one on the left measures approximately 4 x 3.5 x 2.5 cm. Both of them have mixed, heterogeneous l ow and intermediate echogenicity. The margins are irregular. The one on the left may have septations. IMPRESSION: Two perianal soft tissue masses with heterogeneous internal contents. Exact etiology is uncertain, bu t they could represent abscesses or phlegmons, as stated in the history, but their appearance is nons pecific. POS: [facility]
[2019-06-01 15:10] LABS: Neutral Fats And/Or Soaps Normal (.)
[2019-06-01 15:10] LABS: Routine O & P Final report (.)
--- NOTE | 2019-06-01 18:42 | PRG ---
DATE OF SERVICE: 06/01/2019 SUBJECTIVE: Mr. Chowdary's diarrhea has markedly improved. He has only [address] Espinoza contacted me about the possibility of developing a perirectal abscess. Apparently in the past day or so, he has had a blowup of swelling in his perianal area on his buttocks cheek, actually both sides, not just one side and there has been quite a bit of tenderness here. He has had problems with cyst and draining abscesses in his skin before, but never in the perirectal area. More often, this has been under the arm or inguinal regions. He had an ultrasound done with fluid collections on both sides, left than the right, per the ultrasound. PHYSICAL EXAMINATION: VITAL SIGNS: Temperature is 98.7, pulse 75, blood pressure 111/76. LUNGS: Clear. HEART: Regular rate and rhythm. No clicks or murmurs. ABDOMEN: Nontender. SKIN: In the perianal area, he has tenderness on both sides. I am not sure if this is a perirectal abscess. I cannot even get close enough to examine the perineum. LABORATORY DATA: Sodium 132, potassium 3.2, BUN and creatinine 49 and 2.79. ASSESSMENT AND PLAN: 1. Chronic diarrhea. This may have been related to his immunosuppression. He has been changed to Imuran. His diarrhea is much better. Stool studies so far negative. Some studies are still pending, but everything is so far negative including biopsies. 2. Perianal swelling in the buttocks, both sides. I am not sure if this is a true perirectal abscess. He had no findings to suggest perirectal abscess with his colonoscopy on Thursday. He has had recurrent problems with little abscesses in the skin on his buttocks and his groin area before and even on his chest and in the axilla. He may have a variant of hidradenitis suppurativa. It maybe related to his immunosuppression. We will see what the surgeons find tomorrow, but he has no signs of Crohn's or inflammatory bowel disease, and random biopsy felt the colon, ileum and small intestine were normal. Job ID: [id number]
[2019-06-01] MEDS: Morphine 2 MG/ML SYRINGE SLOW IVP PRN (19:50)
--- NOTE | 2019-06-01 23:18 | PRG ---
DATE OF SERVICE: 06/01/2019 SUBJECTIVE: Mr. Chowdary is awake, alert, in no distress. The patient denies any pain at this time. The patient is hospital day number #4 with perirectal abscess requiring surgical intervention. OBJECTIVE: VITAL SIGNS: Stable. The patient remains afebrile. GENERAL: The patient is awake, alert, in no distress, resting comfortably. ASSESSMENT: 1. Chronic diarrhea. 2. Perianal abscess. 3. Immunosuppression. PLAN: We will place the patient n.p.o. after midnight. Plan for OR tomorrow for incision, drainage and washout of perirectal abscess. Continue supportive care. Job ID: [id number]
[2019-06-02] MEDS: Morphine 2 MG/ML SYRINGE SLOW IVP PRN ×4 (00:10→21:40)
[2019-06-02] MEDS: Acetaminophen 325 MG TAB PO PRN (00:11)
[2019-06-02] MEDS: Piperacillin/Tazobactam 2.25 GM in Sodium Chloride 0.9% 100 ML IVPB SCH ×4 (00:12→17:29)
[2019-06-02 06:42] LABS: #Eosinphils 0.1 thou/uL (0.0-0.7); #Monocytes 1.7 thou/uL (0.11-0.59); #Neutrophils 11.6 thou/uL (1.40-6.50); %Basophils 0.1 % (0.0-1.0); %Eosinophils 0.9 % (0.0-10.0); %Lymphocytes 6.8 % (21.0-51.0); %Neutrophils 80.2 % (42.0-75.0); Hemoglobin 8.1 g/dL (14.0-18.0); Mean Corpuscular HGB CONC 33.2 g/dL (32.0-36.0); Mean Corpuscular Hemoglobin 30.6 pg (27.0-31.0); Mean Corpuscular Volume 92.2 fL (78.0-98.0); Mean Platelet Volume 8.5 fL (7.4-10.4); Platelet Count 239 thou/uL (130-400); RBC Distribution Width 13.1 % (11.5-14.5); Red Blood Cell (RBC) Count 2.63 mill/uL (4.70-6.10); White Blood Cell (WBC) Count 14.4 thou/uL (4.8-10.8)
[2019-06-02 07:01] LABS: Anion Gap 10 mmol/L (10-20); BUN (Urea Nitrogen) 39 mg/dL (8.9-20.6); Calc. Creatinine Clearance 30 mL/min (70-130); Calcium 8.5 mg/dL (7.8-10.44); Carbon Dioxide 15 mmol/L (22-29); Chloride 118 mmol/L (98-107); Estimated GFR-MDRD 24; Glucose 107 mg/dL (70-105); Potassium 3.8 mmol/L (3.5-5.1); Sodium 139 mmol/L (136-145)
[2019-06-02] MEDS ORDERED: Sodium Chloride 0.65% Nasal 44 ML BOT EA NARE PRN (08:09)
[2019-06-02] MEDS ORDERED: Loratadine 10 MG TAB PO PRN (08:09)
[2019-06-02] MEDS ORDERED: Diabetic Tussin 200 MG/10 ML UDCUP PO PRN (08:09)
[2019-06-02] MEDS ORDERED: Artificial Tears 18 DROP/0.9 ML EA EYE PRN (08:09)
[2019-06-02] MEDS ORDERED: Ondansetron PF 4 MG/2 ML Vial IVP PRN (08:09)
[2019-06-02] MEDS ORDERED: hydrALAZINE 20 MG/ML VIAL SLOW IVP PRN (08:09)
[2019-06-02] MEDS ORDERED: Zolpidem Tartrate 5 MG TAB PO PRN (08:09)
[2019-06-02] MEDS ORDERED: Cepastat Lozenges 1 LOZ PO PRN (08:09)
[2019-06-02] MEDS ORDERED: Ondansetron ODT 4 MG TAB PO PRN (08:09)
[2019-06-02] MEDS ORDERED: HYDROcodone/Acetaminophen 5/325 mg Tablet PO PRN (08:09)
[2019-06-02] MEDS: predniSONE 5 MG TAB PO SCH (08:23)
[2019-06-02] MEDS: azaTHIOprine 50 MG TAB PO SCH (08:23)
[2019-06-02] MEDS: Magnesium Oxide 400 MG TAB PO SCH (08:23)
[2019-06-02] MEDS: Tacrolimus 0.5 MG CAP PO SCH ×2 (08:23→21:40)
[2019-06-02] MEDS ORDERED: Fentanyl 100 MCG/2 ML VIAL ONE ×2 (09:28→11:34)
[2019-06-02] MEDS ORDERED: Bupivacaine/Epinephrine 0.25% 30 ML VIAL ONE (09:57)
--- NOTE | 2019-06-02 10:09 | PDOC.HOSPP ---
- Subjective Subjective: Patient seen and examined. pt has pain from perianal abscess, no diarrhoea, No overnight events - Objective Vital Signs & Weight: Vital Signs (12 hours) Temp Pulse Resp BP BP Pulse Ox 06/02/19 07:39 99.4 F 69 18 111/61 96 06/02/19 04:00 98.7 F 71 18 104/61 98 06/02/19 00:00 99.6 F 71 20 103/58 L 99 Weight Admit Weight 141 lb 7 oz Weight 141 lb 7 oz I&O: 06/01/19 06/02/19 06/03/19 06:59 06:59 06:59 Intake Total 5030 4365 Output Total 600 2170 Balance 4430 2195 Result Diagrams: 06/02/19 06:26 06/02/19 06:26 ROS - Review of Systems All systems: All other ROS were reviewed and found negative. Constitutional: denies: fever, chills, sweats, weakness, malaise, other Eyes: denies: pain, vision change, conjunctivae inflammation, eyelid inflammation, redness, other ENT: denies: ear pain, ear discharge, nose pain, nose discharge, nose congestion , mouth pain, mouth swelling, throat pain, throat swelling, other Respiratory: denies: cough, dry, shortness of breath, hemoptysis, SOB with excertion, pleuritic pain, sputum, wheezing, other Cardiovascular: denies: chest pain, palpitations, orthopnea, paroxysmal noc. dyspnea, edema, light headedness, other Gastrointestinal: denies: nausea, vomitting, abdominal pain, diarrhea, constipation, melena, hematochezia, other Genitourinary: denies: dysuria, frequency, incontinence, hematuria, retention, other Musculoskeletal: denies: neck pain, shoulder pain, arm pain, back pain, hand pain, leg pain, foot pain, other - Medication Medications: Active Medications Generic Name Dose Route Start Last Admin Trade Name Freq PRN Reason Stop Dose Admin Acetaminophen 650 mg 06/01/19 23:11 06/02/19 00:11 Tylenol PO 650 mg Q6H PRN Administration Headache/Fever or Pain Azathioprine 100 mg 05/30/19 09:00 06/02/19 08:23 Imuran PO 100 mg DAILY JANIS Administration Diltiazem HCl 360 mg 05/29/19 21:00 06/01/19 19:49 Cardizem Cd PO 360 mg HS JANIS Administration Diphenoxylate HCl/Atropine 2 tab 05/29/19 17:31 06/01/19 17:49 Lomotil PO 2 tab PRN PRN Administration Diarrhea/Loose Stools Piperacillin Sod/Tazobactam 100 mls @ 200 mls/hr 06/01/19 12:00 06/02/19 06: 22 Sod 2.25 gm/ Sodium Chloride IVPB 100 mls Q6HR JANIS Administration Magnesium Oxide 400 mg 05/31/19 09:00 06/02/19 08:23 Magnesium Oxide PO 400 mg DAILY JANIS Administration Metoprolol Succinate 100 mg 05/29/19 09:00 06/02/19 06:22 Toprol Xl PO 100 mg DAILY JANIS Administration Morphine Sulfate 2 mg 06/01/19 19:13 06/02/19 06:22 Morphine SLOW IVP 2 mg Q4H PRN Administration Moderate to Severe Pain (6-10) Pantoprazole Sodium 40 mg 06/01/19 09:00 06/02/19 08:22 Protonix PO 40 mg DAILY JANIS Administration Prednisone 5 mg 05/30/19 09:00 06/02/19 08:23 Prednisone PO 5 mg DAILY JANIS Administration Tacrolimus 0.5 mg 05/29/19 20:00 06/02/19 08:23 Prograf PO 0.5 mg JANIS Administration - Exam NAD, awake alert Eye: PERRL, anicteric sclera ENT: normocephalic atraumatic, no oropharyngeal lesions Neck: supple, symmetric, no JVD Heart: RRR, no murmur, no gallops, no rubs Respiratory: CTAB, no wheezes, no rales, no ronchi Gastrointestinal: soft, non-tender, non-distended, normal bowel sounds Extremities: no cyanosis, no clubbing, no edema Skin: normal turgor, no lesions Neurological: CN's grossly intact, normal sensation to touch, no focal deficits Musculoskeletal: normal tone, normal strength Psychiatric: normal affect, normal behavior Hosp A/P (1) Acute worsening of stage 3 chronic kidney disease Code(s): N18.3 - CHRONIC KIDNEY DISEASE, STAGE 3 (MODERATE) Status: Acute (2) Dehydration Code(s): E86.0 - DEHYDRATION Status: Acute (3) Erosive esophagitis Code(s): K22.10 - ULCER OF ESOPHAGUS WITHOUT BLEEDING Status: Acute (4) Gastroenteritis Code(s): K52.9 - NONINFECTIVE GASTROENTERITIS AND COLITIS, UNSPECIFIED Status : Acute (5) Hypokalemia Code(s): E87.6 - HYPOKALEMIA Status: Acute (6) Radha-rectal abscess Code(s): K61.1 - RECTAL ABSCESS Status: Acute (7) Sepsis Code(s): A41.9 - SEPSIS, UNSPECIFIED ORGANISM Status: Acute Qualifiers: Sepsis type: sepsis due to unspecified organism Qualified Code(s): A41.9 - Sepsis, unspecified organism (8) Anemia, normocytic normochromic Code(s): D64.9 - ANEMIA, UNSPECIFIED Status: Chronic (9) H/O kidney transplant Status: Chronic (10) Immunosuppressed status Code(s): D89.9 - DISORDER INVOLVING THE IMMUNE MECHANISM, UNSPECIFIED Status: Chronic - Plan old records reviewed/req, continue antibiotics continue zosyn continue pain control I & D today
[2019-06-02] MEDS ORDERED: Piperacillin/Tazobactam 3.375 GM VIAL ONE (10:54)
[2019-06-02] MEDS ORDERED: Ondansetron HCl/PF 4 MG/2 ML Vial IVP PRN (11:23)
[2019-06-02] MEDS ORDERED: Promethazine HCl 25 MG/ML VIAL IM PRN (11:23)
[2019-06-02] MEDS ORDERED: Promethazine HCl 25 MG/ML VIAL SLOW IVP PRN (11:23)
--- NOTE | 2019-06-02 12:38 | OP ---
DATE OF PROCEDURE: 06/02/2019 INDICATION: Mr. Chowdary is a 43-year-old man, presented with perirectal pain. Clinical radiographic examination was consistent with multiple bilateral perirectal abscesses. The patient was brought to the operating room today for incision and drainage. DESCRIPTION OF PROCEDURE: Informed consent was obtained from the patient, who was brought to the operating room and placed in supine position. Following general anesthesia, the patient was placed in a prone position, jose-knife. The entire gluteal and perineal area were widely and sterilely prepped and draped in usual fashion. We approached the left perirectal area, palpating flocculence. The palpated flocculence was anesthetized with 0.25% Marcaine with epinephrine. A stab incision was made using 11 scalpel. A large amount of purulent white pus was evacuated. Culture was taken. The stab incision was converted to crucifix incision. The abscess cavity was copiously irrigated clear with saline. I then approached the right side, where 2 discrete flocculent masses were palpated. The skin individually over the fluctuant masses was anesthetized with 0.25% Marcaine. Crucifix incision was made over each dome, and large amount of purulent pus was evacuated. The abscess cavities were individually irrigated clear with saline. There was no communication between the 2 abscesses. Each abscess cavity was then packed with 0.5-inch iodoform gauze. Sterile 4x4 gauze was then placed over this, and mesh pants were then applied. The patient tolerated the procedure without any apparent complication and was returned to recovery room in satisfactory condition. Job ID: [id number]
[2019-06-02] MEDS: Potassium Chloride 20 MEQ TAB PO SCH (17:28)
[2019-06-02 19:08] LABS: CMV DNA-PCR Test Negative (Negative)
--- NOTE | 2019-06-02 20:21 | PRG ---
DATE OF SERVICE: 06/02/2019 SUBJECTIVE: Mr. Ingram is without complaints. He had some abscess on his buttocks drained earlier today. It is really not clear from the op report if these are perirectal abscesses. They did not really look like that on exam. He has had a bunch of boils on his perineum and bottom areas and skin over his gluteal areas in the past. Presently, he is feeling much better. He has had no diarrhea today. OBJECTIVE: VITAL SIGNS: Temperature is 98, pulse 63, blood pressure is 116/63. LUNGS: Clear. HEART: Regular. ABDOMEN: Nontender. LABORATORY DATA: White count 14, hemoglobin is 8.1, platelet count 239. Sodium 139, potassium 3.8, BUN and creatinine are 39 and 2.95. These are improved daily. Today's BUN is little higher than yesterday. CMV was negative. Blood work, ova and parasite smear was negative. Fecal fat was negative. Cyclospora is pending. ASSESSMENT: 1. Diarrhea, improved markedly. Biopsies were negative. We are awaiting the results of some of the stool studies. However, it seems that the biggest improvement since stopping is making the changes in his immunosuppressant agents. 2. Drainage of "perirectal abscesses" today by surgery. I am not sure these are truly perirectal abscesses based on whether location is very atypical of bilateral perirectal abscesses or not this is a horseshoe abscess and finally there were no signs of perianal disease on his colonoscopy just a few days ago. I think these are more cutaneous abscesses and has been seen as he has had multiple drained in the past and may be more even like hidradenitis suppurativa. This makes a difference based on the fact that he is on antibiotics now. If these are perirectal abscesses, he does not need to continue antibiotics. The drainage is treatment enough. He is at very high risk for getting Clostridium difficile with his immunosuppression and chronic antibiotics. RECOMMENDATIONS: 1. I would start a probiotic. 2. I would stop his IV antibiotics as soon as possible. If the abscess has been adequately drained, he should need further antibiotics unless the surgery feels otherwise. Job ID: [id number]
--- NOTE | 2019-06-02 23:11 | CON ---
DATE OF CONSULTATION: 06/01/2019 HISTORY OF PRESENT ILLNESS: This is a 43-year-old gentleman who was admitted to the hospital with worsening bilateral perirectal abscesses. 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 The patient has a history of a renal transplant in 2003 and was previously on dialysis for approximately 13 months. The patient denies any recent fevers or chills. The patient was seen by Dr. Stallings approximately 10 days prior and had incision of the left groin and thigh area on an outpatient basis and was placed on Keflex. The patient has a history of chronic diarrhea as a result of his anti-rejection medications. He reports that he has been having 10-12 liquid stools per day. The patient also reports generalized weakness. The patient denies any abdominal pain, nausea, or vomiting. REVIEW OF SYSTEMS: A 10-point review of systems is negative unless otherwise indicated in the above HPI. PAST MEDICAL HISTORY: IgA nephropathy and subsequent chronic kidney disease, stage 3, prior history of hypertension. PAST SURGICAL HISTORY: Renal transplant and incision and drainage of superficial abscesses. SOCIAL HISTORY: Denies smoking history, nondrinker, nondrug user. CURRENT MEDICATIONS: 1. Myfortic 180 mg three tablets b.i.d. 2. Prednisone 5 mg daily. 3. Captopril 50 mg b.i.d. 4. Cardizem 360 mg p.o. daily. 5. Tacrolimus 0.5 mg b.i.d. 6. Metoprolol 100 mg p.o. b.i.d. PHYSICAL EXAMINATION: VITAL SIGNS: Temperature 98.6, pulse 63, respirations 18, SpO2 99%, blood pressure 106/63. GENERAL: Pleasant middle aged gentleman. Awake, alert, no distress. HEENT: Unremarkable RESP: Even and non labored. ABDOMEN: Soft, flat EXTREMITIES: Neurovascularly intact. IMPRESSION: 1. Multiple bilateral perirectal abscess. 2. History of renal transplant. PLAN: Incision and drainage of perirectal abscesses. Continue IV antibiotics. The patient is being medically managed by Hospital Medicine. Thank you, Dr. Espinoza for allowing us to participate in the patient's care. Job ID: [id number] [facility]
--- NOTE | 2019-06-02 23:47 | PRG ---
DATE OF SERVICE: 06/02/2019 SUBJECTIVE: The patient is a 43-year-old gentleman who is postop incision and drainage of multiple bilateral perirectal abscesses. The patient is currently awake, alert, in no distress. The patient reports that his pain is well controlled at this time. The patient is tolerating a diet. The patient voices no complaints. OBJECTIVE: VITAL SIGNS: Stable. The patient remains afebrile. GENERAL: The patient is awake, alert, oriented x3. GCS 15. No acute distress. RESPIRATORY: Equal chest rise and fall, no respiratory distress. IMPRESSION: 1. Multiple bilateral perirectal abscesses, postop incision and drainage. 2. Chronic diarrhea. 3. Immunosuppression. PLAN: Continue regular diet. Continue supportive care. Job ID: [id number]
[2019-06-03] MEDS: Piperacillin/Tazobactam 2.25 GM in Sodium Chloride 0.9% 100 ML IVPB SCH ×2 (00:50→06:53)
[2019-06-03] MEDS: predniSONE 5 MG TAB PO SCH (08:01)
[2019-06-03] MEDS: Tacrolimus 0.5 MG CAP PO SCH ×2 (08:01→20:13)
[2019-06-03] MEDS: Magnesium Oxide 400 MG TAB PO SCH (08:01)
[2019-06-03] MEDS: Saccharomyces boulardii 250 MG CAP PO SCH (08:01)
[2019-06-03] MEDS: azaTHIOprine 50 MG TAB PO SCH (08:01)
[2019-06-03] MEDS: Morphine 2 MG/ML SYRINGE SLOW IVP PRN ×2 (08:02→11:32)
[2019-06-03] MEDS: Potassium Chloride 20 MEQ TAB PO SCH ×2 (08:02→16:43)
--- NOTE | 2019-06-03 10:52 | PDOC.HOSPP ---
- Subjective Subjective: Patient seen and examined. No new complaints. No overnight events - Objective Vital Signs & Weight: Vital Signs (12 hours) Temp Pulse Resp BP Pulse Ox 06/03/19 08:00 95 06/03/19 07:18 97.7 F 60 14 99/60 95 Weight Admit Weight 141 lb 7 oz Weight 141 lb 7 oz I&O: 06/02/19 06/03/19 06/04/19 06:59 06:59 06:59 Intake Total 4365 525 Output Total 2170 575 Balance 2195 -50 Result Diagrams: 06/02/19 06:26 06/02/19 06:26 ROS - Review of Systems All systems: All other ROS were reviewed and found negative. Constitutional: denies: fever, chills, sweats, weakness, malaise, other Eyes: denies: pain, vision change, conjunctivae inflammation, eyelid inflammation, redness, other ENT: denies: ear pain, ear discharge, nose pain, nose discharge, nose congestion , mouth pain, mouth swelling, throat pain, throat swelling, other Respiratory: denies: cough, dry, shortness of breath, hemoptysis, SOB with excertion, pleuritic pain, sputum, wheezing, other Cardiovascular: denies: chest pain, palpitations, orthopnea, paroxysmal noc. dyspnea, edema, light headedness, other Gastrointestinal: denies: nausea, vomitting, abdominal pain, diarrhea, constipation, melena, hematochezia, other Genitourinary: denies: dysuria, frequency, incontinence, hematuria, retention, other Musculoskeletal: denies: neck pain, shoulder pain, arm pain, back pain, hand pain, leg pain, foot pain, other Skin: denies: rash, lesions, serg, bruising, other - Medication Medications: Active Medications Generic Name Dose Route Start Last Admin Trade Name Freq PRN Reason Stop Dose Admin Acetaminophen 650 mg 06/01/19 23:11 06/02/19 00:11 Tylenol PO 650 mg Q6H PRN Administration Headache/Fever or Pain Hydrocodone Bitart/Acetaminophen 1 tab 06/02/19 08:09 06/02/19 17:36 [place] 5/325 PO 1 tab Q4H PRN Administration Moderate Pain (4-6) Azathioprine 100 mg 05/30/19 09:00 06/03/19 08:01 Imuran PO 100 mg DAILY JANIS Administration Diltiazem HCl 360 mg 05/29/19 21:00 06/02/19 21:40 Cardizem Cd PO 360 mg HS JANIS Administration Diphenoxylate HCl/Atropine 2 tab 05/29/19 17:31 06/01/19 17:49 Lomotil PO 2 tab PRN PRN Administration Diarrhea/Loose Stools Piperacillin Sod/Tazobactam 100 mls @ 200 mls/hr 06/01/19 12:00 06/03/19 06: 53 Sod 2.25 gm/ Sodium Chloride IVPB 100 mls Q6HR JANIS Administration Magnesium Oxide 400 mg 05/31/19 09:00 06/03/19 08:01 Magnesium Oxide PO 400 mg DAILY JANIS Administration Metoprolol Succinate 100 mg 05/29/19 09:00 06/03/19 10:26 Toprol Xl PO Not Given DAILY JANIS Morphine Sulfate 2 mg 06/01/19 19:13 06/03/19 08:02 Morphine SLOW IVP 2 mg Q4H PRN Administration Moderate to Severe Pain (6-10) Pantoprazole Sodium 40 mg 06/01/19 09:00 06/03/19 08:02 Protonix PO 40 mg DAILY JANIS Administration Potassium Chloride 40 meq 06/02/19 17:00 06/03/19 08:02 K-Dur PO 40 meq BID-WM JANIS Administration Prednisone 5 mg 05/30/19 09:00 06/03/19 08:01 Prednisone PO 5 mg DAILY JANIS Administration Saccharomyces Boulardii 250 mg 06/03/19 09:00 06/03/19 08:01 Florastor PO 250 mg DAILY JANIS Administration Tacrolimus 0.5 mg 05/29/19 20:00 06/03/19 08:01 Prograf PO 0.5 mg 08,1999 JANIS Administration - Exam NAD, awake alert Eye: PERRL, anicteric sclera ENT: normocephalic atraumatic, no oropharyngeal lesions Neck: supple, symmetric, no JVD Heart: RRR, no murmur, no gallops, no rubs Respiratory: CTAB, no wheezes, no rales, no ronchi Gastrointestinal: soft, non-tender, non-distended, normal bowel sounds Extremities: no cyanosis, no clubbing, no edema Skin: normal turgor, no lesions Neurological: CN's grossly intact, normal sensation to touch, no focal deficits Musculoskeletal: normal tone, normal strength, no muscle wasting Psychiatric: normal affect, normal behavior, A&O x 3 Hosp A/P (1) Acute worsening of stage 3 chronic kidney disease Code(s): N18.3 - CHRONIC KIDNEY DISEASE, STAGE 3 (MODERATE) Status: Acute (2) Dehydration Code(s): E86.0 - DEHYDRATION Status: Acute (3) Erosive esophagitis Code(s): K22.10 - ULCER OF ESOPHAGUS WITHOUT BLEEDING Status: Acute (4) Gastroenteritis Code(s): K52.9 - NONINFECTIVE GASTROENTERITIS AND COLITIS, UNSPECIFIED Status : Acute (5) Hypokalemia Code(s): E87.6 - HYPOKALEMIA Status: Acute (6) Radha-rectal abscess Code(s): K61.1 - RECTAL ABSCESS Status: Acute (7) Sepsis Code(s): A41.9 - SEPSIS, UNSPECIFIED ORGANISM Status: Acute Qualifiers: Sepsis type: sepsis due to unspecified organism Qualified Code(s): A41.9 - Sepsis, unspecified organism (8) Anemia, normocytic normochromic Code(s): D64.9 - ANEMIA, UNSPECIFIED Status: Chronic (9) H/O kidney transplant Status: Chronic (10) Immunosuppressed status Code(s): D89.9 - DISORDER INVOLVING THE IMMUNE MECHANISM, UNSPECIFIED Status: Chronic - Plan old records reviewed/req, continue antibiotics pt's family member to learn to do dressing change at home continue zosyn based on culture result will change to oral antibiotics medication reviewed as below symptomatic treatment
[2019-06-03] MEDS: Morphine 4 MG/ML VIAL SLOW IVP PRN ×2 (15:33→20:16)
--- NOTE | 2019-06-03 16:21 | PRG ---
DATE OF SERVICE: 06/03/2019 SUBJECTIVE: The patient is currently on the medical floor. He is the patient we are seeing in consultation for a perirectal abscess. The patient is postop day #1, status post irrigation and debridement of the same. He is to begin care with the Wound Care team. Today, he will also be transitioned from IV antibiotics to p.o. antibiotics. Morning, the patient reports marked improvement in his tenderness to his gluteal area. OBJECTIVE: VITAL SIGNS: Temperature is 97.7, heart rate 60, blood pressure 99/60, respirations 14, and oxygen saturation 95% on room air. GENERAL: The patient is resting comfortably in bed. He is awake, alert, and appropriate. SKIN: The patient's wound is clean, dry, and intact. The Wound Care team has just redressed his site. We will not retake this down. They report no issues at this time. They will continue daily dressing changes and notify us if there is any significant changes or worsening. ASSESSMENT/PLAN: 1. Status post perirectal abscess. 2. History of immunocompromise due to renal transplant. Plan will be to discontinue IV antibiotics, transition into Augmentin 875 p.o. b.i.d. for a total of 10 days. The patient will need followup with the [facility], who Dr. Hewitt discussed with one of the wound care nurses to notify us when the patient is in their clinic if there are any changes that we need to address. The patient was evaluated this morning by Dr. Hewitt during rounds. Job ID: [id number]
--- NOTE | 2019-06-03 16:54 | PRG ---
DATE OF SERVICE: 06/03/2019 SUBJECTIVE: Mr. Chowdary is having no diarrhea. He states he has had some pain with wound care changes in his bottom. OBJECTIVE: VITAL SIGNS: Temperature 98.6, pulse 63, blood pressure 106/67. ABDOMEN: Soft and nontender. LUNGS: Clear. HEART: Regular rate and rhythm. No clicks or murmurs. LABORATORY DATA: None today. New study, stool Cryptosporidium was negative. ASSESSMENT: 1. Diarrheal illness, resolved with no evidence of fecal inflammation with negative fecal lactoferrin stool for Cyclospora. His diarrhea has resolved since his tacrolimus was discontinued and he was placed on Imuran. 2. Perirectal abscesses. 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 RECOMMENDATIONS: If his cellulitis is resolving, now that has been drained, once Surgery feels his antibiotics can be discontinued, I would do so. We will continue probiotics. Dr. Stevens will be on-call over the weekend if needed, if diarrhea recurs. Otherwise, we will follow up on with him on Thursday. Job ID: [id number]
[2019-06-03] MEDS: Amoxicillin/Potassium Clav 875 MG TAB PO SCH (20:12)
[2019-06-03] MEDS: Acetaminophen 325 MG TAB PO PRN (20:13)
[2019-06-04] MEDS: Tacrolimus 0.5 MG CAP PO SCH ×2 (08:04→20:54)
[2019-06-04] MEDS: azaTHIOprine 50 MG TAB PO SCH (08:04)
[2019-06-04] MEDS: Saccharomyces boulardii 250 MG CAP PO SCH (08:04)
[2019-06-04] MEDS: Potassium Chloride 20 MEQ TAB PO SCH ×2 (08:04→17:31)
[2019-06-04] MEDS: Amoxicillin/Potassium Clav 875 MG TAB PO SCH ×2 (08:04→20:54)
[2019-06-04] MEDS: Magnesium Oxide 400 MG TAB PO SCH (08:05)
[2019-06-04] MEDS: predniSONE 5 MG TAB PO SCH (08:05)
[2019-06-04] MEDS: Morphine 4 MG/ML VIAL SLOW IVP PRN ×3 (08:12→20:54)
[2019-06-04 09:12] LABS: #Eosinphils 0.2 thou/uL (0.0-0.7); #Lymphocytes 0.9 thou/uL (1.20-3.40); #Monocytes 1.2 thou/uL (0.11-0.59); #Neutrophils 7.8 thou/uL (1.40-6.50); %Basophils 0.1 % (0.0-1.0); %Eosinophils 1.6 % (0.0-10.0); %Lymphocytes 8.9 % (21.0-51.0); %Monocytes 11.8 % (0.0-10.0); %Neutrophils 77.5 % (42.0-75.0); Hemoglobin 8.1 g/dL (14.0-18.0); Mean Corpuscular HGB CONC 32.6 g/dL (32.0-36.0); Mean Corpuscular Hemoglobin 31.2 pg (27.0-31.0); Mean Corpuscular Volume 95.7 fL (78.0-98.0); Mean Platelet Volume 8.2 fL (7.4-10.4); Platelet Count 299 thou/uL (130-400); RBC Distribution Width 13.4 % (11.5-14.5); Red Blood Cell (RBC) Count 2.61 mill/uL (4.70-6.10); White Blood Cell (WBC) Count 10.1 thou/uL (4.8-10.8)
[2019-06-04 09:25] LABS: Anion Gap 9 mmol/L (10-20); BUN (Urea Nitrogen) 34 mg/dL (8.9-20.6); Calc. Creatinine Clearance 33 mL/min (70-130); Calcium 8.2 mg/dL (7.8-10.44); Carbon Dioxide 18 mmol/L (22-29); Chloride 119 mmol/L (98-107); Estimated GFR-MDRD 27; Glucose 106 mg/dL (70-105); Sodium 142 mmol/L (136-145)
--- NOTE | 2019-06-04 12:11 | PDOC.HOSPP ---
- Subjective Subjective: Patient seen and examined. No new complaints. No overnight events - Objective Vital Signs & Weight: Vital Signs (12 hours) Temp Pulse Resp BP Pulse Ox 06/04/19 11:16 98.1 F 72 20 124/75 96 06/04/19 08:12 99 06/04/19 07:15 97.7 F 67 18 122/73 99 Weight Admit Weight 141 lb 7 oz Weight 141 lb 7 oz I&O: 06/03/19 06/04/19 06/05/19 06:59 06:59 06:59 Intake Total 525 1799 Output Total 575 1200 Balance -50 599 Result Diagrams: 06/04/19 09:00 06/04/19 09:00 ROS - Review of Systems All systems: All other ROS were reviewed and found negative. Constitutional: denies: fever, chills, sweats, weakness, malaise, other Eyes: denies: pain, vision change, conjunctivae inflammation, eyelid inflammation, redness, other ENT: denies: ear pain, ear discharge, nose pain, nose discharge, nose congestion , mouth pain, mouth swelling, throat pain, throat swelling, other Respiratory: denies: cough, dry, shortness of breath, hemoptysis, SOB with excertion, pleuritic pain, sputum, wheezing, other Cardiovascular: denies: chest pain, palpitations, orthopnea, paroxysmal noc. dyspnea, edema, light headedness, other Gastrointestinal: denies: nausea, vomitting, abdominal pain, diarrhea, constipation, melena, hematochezia, other Genitourinary: denies: dysuria, frequency, incontinence, hematuria, retention, other Musculoskeletal: denies: neck pain, shoulder pain, arm pain, back pain, hand pain, leg pain, foot pain, other Skin: denies: rash, lesions, serg, bruising, other - Medication Medications: Active Medications Generic Name Dose Route Start Last Admin Trade Name Freq PRN Reason Stop Dose Admin Acetaminophen 650 mg 06/01/19 23:11 06/03/19 20:13 Tylenol PO 650 mg Q6H PRN Administration Headache/Fever or Pain Hydrocodone Bitart/Acetaminophen 1 tab 06/02/19 08:09 06/02/19 17:36 [place] 5/325 PO 1 tab Q4H PRN Administration Moderate Pain (4-6) Amoxicillin/Clavulanate Potassium 875 mg 06/03/19 21:00 06/04/19 08:04 Augmentin PO 06/10/19 21:01 875 mg Q12HR JANIS Administration Azathioprine 100 mg 05/30/19 09:00 06/04/19 08:04 Imuran PO 100 mg DAILY JANIS Administration Diltiazem HCl 360 mg 05/29/19 21:00 06/03/19 20:12 Cardizem Cd PO 360 mg HS JANIS Administration Diphenoxylate HCl/Atropine 2 tab 05/29/19 17:31 06/01/19 17:49 Lomotil PO 2 tab PRN PRN Administration Diarrhea/Loose Stools Magnesium Oxide 400 mg 05/31/19 09:00 06/04/19 08:05 Magnesium Oxide PO 400 mg DAILY JANIS Administration Metoprolol Succinate 100 mg 05/29/19 09:00 06/04/19 08:05 Toprol Xl PO 100 mg DAILY JANIS Administration Morphine Sulfate 4 mg 06/03/19 14:47 06/04/19 12:04 Morphine SLOW IVP 4 mg Q4H PRN Administration Moderate to Severe Pain (6-10) Pantoprazole Sodium 40 mg 06/01/19 09:00 06/04/19 08:05 Protonix PO 40 mg DAILY JANIS Administration Potassium Chloride 40 meq 06/02/19 17:00 06/04/19 08:04 K-Dur PO 40 meq BID-WM JANIS Administration Prednisone 5 mg 05/30/19 09:00 06/04/19 08:05 Prednisone PO 5 mg DAILY JANIS Administration Saccharomyces Boulardii 250 mg 06/03/19 09:00 06/04/19 08:04 Florastor PO 250 mg DAILY JANIS Administration Tacrolimus 0.5 mg 05/29/19 20:00 06/04/19 08:04 Prograf PO 0.5 mg 08,1999 JANIS Administration - Exam NAD, awake alert Eye: PERRL, anicteric sclera ENT: normocephalic atraumatic, no oropharyngeal lesions Neck: supple, symmetric, no JVD Heart: RRR, no murmur, no gallops, no rubs Respiratory: CTAB, no wheezes, no rales, no ronchi Gastrointestinal: soft, non-tender, non-distended, normal bowel sounds Extremities: no cyanosis, no clubbing, no edema Skin: normal turgor, no lesions, no rashes Neurological: CN's grossly intact, normal sensation to touch, no focal deficits Musculoskeletal: normal tone, normal strength, no muscle wasting Psychiatric: normal affect, normal behavior Hosp A/P (1) Acute worsening of stage 3 chronic kidney disease Code(s): N18.3 - CHRONIC KIDNEY DISEASE, STAGE 3 (MODERATE) Status: Acute (2) Dehydration Code(s): E86.0 - DEHYDRATION Status: Acute (3) Erosive esophagitis Code(s): K22.10 - ULCER OF ESOPHAGUS WITHOUT BLEEDING Status: Acute (4) Gastroenteritis Code(s): K52.9 - NONINFECTIVE GASTROENTERITIS AND COLITIS, UNSPECIFIED Status : Acute (5) Hypokalemia Code(s): E87.6 - HYPOKALEMIA Status: Acute (6) Radha-rectal abscess Code(s): K61.1 - RECTAL ABSCESS Status: Acute (7) Sepsis Code(s): A41.9 - SEPSIS, UNSPECIFIED ORGANISM Status: Acute Qualifiers: Sepsis type: sepsis due to unspecified organism Qualified Code(s): A41.9 - Sepsis, unspecified organism (8) Anemia, normocytic normochromic Code(s): D64.9 - ANEMIA, UNSPECIFIED Status: Chronic (9) H/O kidney transplant Status: Chronic (10) Immunosuppressed status Code(s): D89.9 - DISORDER INVOLVING THE IMMUNE MECHANISM, UNSPECIFIED Status: Chronic - Plan old records reviewed/req, continue antibiotics medication reviewed as below symptomatic treatment follow on culture result wound care pain control
--- NOTE | 2019-06-04 13:52 | PRG ---
DATE OF SERVICE: 06/04/2019 SUBJECTIVE: This is a 43-year-old male that our team is seeing in consultation for abscess. He is status post incision and drainage. There were no acute overnight events. He is postop day two. This morning, the patient reports dressing changes were painful with wound care, but tolerable. He has been switched to p.o. antibiotics. OBJECTIVE: VITAL SIGNS: Temperature 98.1, pulse 72, respirations 20, O2 saturation 96% on room air, blood pressure 124/75. GENERAL: Resting in bed. No acute distress. PULMONARY: Normal work of breathing. Symmetric rise. CARDIOVASCULAR: Regular rate and rhythm. GI: Abdomen soft, nontender, nondistended. MUSCULOSKELETAL: Moves all extremities x4. NEURO: No focal deficit noted. LABORATORY FINDINGS: WBC 10.1, hemoglobin 8.1, hematocrit 24.9, platelet count 299. Sodium 142, potassium 4.0, chloride 119, carbon dioxide 18, BUN 34, creatinine 2.62, glucose 106. No new radiographic findings. ASSESSMENT: 1. Status post incision and drainage of two perirectal abscesses. 2. History of IgM nephropathy and chronic kidney disease. 3. Status post renal transplant, on immunosuppressive therapy. 4. History of hypertension. PLAN: Continue wound care and supportive therapy as ordered. If the primary team feels that the risk of antibiotic outweigh the benefit, may be discontinued as his abscess sites have been drained. From a surgical standpoint, patient will be stable for discharge once cleared by the Medicine Team. He will need outpatient wound care to follow him. If there are any issues with the wound, they will then contact Dr. Hewitt. Case Management has been consulted to arrange this. Plan of care was discussed with the patient and nurse, and all questions were answered prior to this dictation. The patient has been discussed with Dr. Hewitt. Job ID: [id number]
[2019-06-04 17:51] LABS: Albumin 2.7 g/dL (3.5-5.0); Anion Gap 10 mmol/L (10-20); BUN (Urea Nitrogen) 33 mg/dL (8.9-20.6); BUN/Creatinine Ratio 12.99; Calc. Creatinine Clearance 34 mL/min (70-130); Calcium 8.4 mg/dL (7.8-10.44); Carbon Dioxide 18 mmol/L (22-29); Chloride 120 mmol/L (98-107); Estimated GFR-MDRD 28; Glucose 136 mg/dL (70-105); Magnesium 1.3 mg/dL (1.6-2.6); Phosphorus 2.9 mg/dL (2.3-4.7); Sodium 143 mmol/L (136-145)
[2019-06-04] MEDS: Acetaminophen 325 MG TAB PO PRN (20:54)
[2019-06-05] MEDS ORDERED: Magnesium Sulfate 2 GM in Sodium Chloride 0.9% 100 ML IVPB SCH (07:45)
[2019-06-05] MEDS ORDERED: Magnesium 2 GM/50 ML 2 GM in Premix Bag 1 BAG IVPB SCH (07:45)
[2019-06-05] MEDS: azaTHIOprine 50 MG TAB PO SCH (08:02)
[2019-06-05] MEDS: Potassium Chloride 20 MEQ TAB PO SCH (08:02)
[2019-06-05] MEDS: predniSONE 5 MG TAB PO SCH (08:02)
[2019-06-05] MEDS: Amoxicillin/Potassium Clav 875 MG TAB PO SCH (08:02)
[2019-06-05] MEDS: Saccharomyces boulardii 250 MG CAP PO SCH (08:02)
[2019-06-05] MEDS: Magnesium Oxide 400 MG TAB PO SCH (08:03)
[2019-06-05] MEDS: Tacrolimus 0.5 MG CAP PO SCH (08:03)
[2019-06-05] MEDS: Morphine 4 MG/ML VIAL SLOW IVP PRN (11:04)
[2019-06-05] MEDS ORDERED: Morphine 4 MG/ML VIAL SLOW IVP SCH (11:30)
[2019-06-05 12:54] VITALS: BP 122/75; TEMP 98.2
--- NOTE | 2019-06-05 14:13 | DIS ---
DATE OF ADMISSION: 05/28/2019 DATE OF DISCHARGE: 06/05/2019 PRIMARY CARE PHYSICIAN: [facility] Call admission. DISCHARGE DISPOSITION: Home. PRIMARY DISCHARGE DIAGNOSES: Acute on chronic kidney failure; baseline chronic kidney disease stage 3; dehydration, corrected; erosive esophagitis; gastroenteritis; hypokalemia; hypomagnesemia; perirectal abscess, status post I and D; sepsis, resolved. SECONDARY DISCHARGE DIAGNOSES: Normocytic normochromic anemia, history of kidney transplant, immunosuppressed status. PRIMARY PROCEDURE/OPERATION: Dr. Hewitt did incision and drainage of perirectal abscess. Dr. Hamilton did upper endoscopy and colonoscopy. RADIOLOGICAL INVESTIGATION: Chest x-ray, ultrasound, abscess assessment. SIGNIFICANT LABORATORY DATA: WBC 10.1, hemoglobin 8.1, platelets 299. Sodium 143, creatinine 2.54, albumin 2.7. Stool for infection workup came back negative. CMV DNA, negative. Blood culture, negative. DISCHARGE MEDICATIONS: 1. Augmentin 500 mg p.o. b.i.d. for 10 days. 2. Florastor 250 mg p.o. daily. 3. Tacrolimus 0.5 mg p.o. b.i.d. 4. Prednisone 5 mg daily. 5. Myfortic 540 mg p.o. b.i.d. 6. Toprol-XL 100 mg daily. 7. Cardizem CD 360 mg p.o. daily. CONTRAINDICATION: None. CODE STATUS: Full code. INPATIENT CONSULTANTS: Dr. Hamilton was following while in hospital. Dr. Hewitt was consulted for perirectal abscess. Dr. Eh Espinoza, Nephrology was following while in hospital. TEST RESULTS PENDING ON DISCHARGE: None. ALLERGIES: NO KNOWN DRUG ALLERGIES. DISCHARGE PLAN: Posthospital, the patient will be discharged home with outpatient wound care. The patient will follow up with Dr. Eh Espinoza, Dr. Hamilton, and Dr. Hewitt as instructed. HOSPITAL COURSE: A 43-year-old male, who was admitted in the hospital by Dr. Espinoza, please see his H and P for further details. The patient was having diarrhea, dehydration, and acute on chronic kidney failure. Because of dehydration, he had abnormal electrolytes. His stool for infection workup negative as the patient was on immunocompromised medication and that is why we consulted bus inspector and the patient underwent upper and lower endoscopy. Biopsy of colon was unremarkable. Upper endoscopy showed erosive esophagitis. Testing for celiac disease was also negative. The patient was having lot of rectal pain and that is why we consulted General Surgery for perirectal abscess and it was confirmed with ultrasound. The patient required I and D, and pus drainage. After that, the patient had significant improvement. The patient was followed by Wound Care Team after surgery and the patient has arrangement for outpatient wound care as well. His diarrhea stopped. He was treated with Zosyn for perirectal abscess and on discharge, we changed to Augmentin. The patient will follow up with Dr. Eh Espinoza, Dr. Hamilton, and Dr. Hewitt. He will follow up with outpatient wound care clinic as well and he is instructed to follow up with Nephrology. PHYSICAL EXAMINATION: Today, I have seen and examined the patient at bedside today. VITAL SIGNS: His temperature 98.2, pulse 72, respiratory rate 18, saturation 98%, blood pressure 122/75. Weight 141 pounds. GENERAL: The patient is currently alert, awake, in no acute distress. HEENT: Head; normocephalic, atraumatic. LUNGS: Clear to auscultation without any rhonchi or rales. CARDIAC: S1 and S2, regular without any murmur. ABDOMEN: Soft and benign. EXTREMITIES: No edema. NEUROLOGIC: Nonfocal examination. Overall, the patient is doing very well and he will follow up with his primary care physician as instructed. Job ID: [id number]
[2019-06-07 06:09] LABS: Cyclospora Smear-Stool None seen (None seen)
== END 2019-06-05 13:27 | disposition home or self-care (01) | DRG 854 ==
LOC: ERS 10:55 → OBSVTOIN 16:35 → 2SW 16:35 → T4-A 05-29 17:53 → T4-B 06-03 16:17 → T4-A 06-03 16:23
PROVIDERS: ADMIT Internal Medicine; ATTEND Internal Medicine
PROC: 0DBG8ZX Excision of Left Large Intestine, Via Natural or Artificial Opening Endoscopic, Diagnostic (ICD-10-PCS; 2019-05-30)
PROC: 0DBF8ZX Excision of Right Large Intestine, Via Natural or Artificial Opening Endoscopic, Diagnostic (ICD-10-PCS; 2019-05-30)
PROC: 0DB98ZX Excision of Duodenum, Via Natural or Artificial Opening Endoscopic, Diagnostic (ICD-10-PCS; 2019-05-30)
PROC: 0D9P0ZZ Drainage of Rectum, Open Approach (ICD-10-PCS; principal; 2019-06-02)
DX: A41.9 Sepsis, unspecified organism (principal); N17.9 Acute kidney failure, unspecified; K52.1 Toxic gastroenteritis and colitis; E87.2 Acidosis; K61.1 Rectal abscess; Z94.0 Kidney transplant status; N18.3 Chronic kidney disease, stage 3 (moderate); I12.9 Hypertensive chronic kidney disease with stage 1 through stage 4 chronic kidney disease, or unspecified chronic kidney disease; E86.0 Dehydration; E87.6 Hypokalemia; T45.1X5A Adverse effect of antineoplastic and immunosuppressive drugs, initial encounter; K20.9 Esophagitis, unspecified; E83.51 Hypocalcemia; D64.9 Anemia, unspecified; Z79.52 Long term (current) use of systemic steroids; Z79.899 Other long term (current) drug therapy
CPT/HCPCS: 36415; 36416; 71045; 76705; 80048; 80053; 82274; 82570; 82607; 82705; 82746; 82941; 83605; 83630; 83735; 84100; 84156; 84443; 84484; 84586; 85025; 85652; 86140; 87015; 87040; 87045; 87046; 87070; 87116; 87177; 87205; 87206; 87324; 87328; 87329; 87449; 87497; 87899; 88305; 88312; 88313; 96360; 96361; J2001; J2270; J2543; J2704; J3010; J3475; J3480; J3490; J7042; J7070; J7500; J7507; J7512; J7518